=== PATIENT | female | born 1935 | race Caucasian/White ===

== ENCOUNTER 2017-10-25 12:22 | Emergency (ER) | payer MEDICARE, SELFPAY ==
[2017-10-25 12:23] VITALS: BP 166/58; PULSE 72; RESP 16; TEMP 36; O2SAT 98; BMI 28.5
--- NOTE | 2017-10-25 12:43 | CT_ITS ---
STUDY: CTA OF THE BRAIN REASON FOR EXAM: Female, 82 years old. One week history of dizziness. RADIATION DOSAGE (If Supplied By Facility): CTDIvol = ( 28.32 ) mGy, DLP = ( 1529.80 ) mGycm TECHNIQUE: CT angiography was performed with a multi-detector CT scanner. Data acquisition was obtained from the skull base through the vertex following intravenous administration of 100 ml of Isovue-370. MIP images were reconstructed from the axial data set. Post-processing of the angiographic images was performed, with multiplanar reformation and 3D reconstruction. Individualized dose optimization techniques were used for this CT. COMPARISON: None. FINDINGS: Normal bilateral petrous carotid arteries. There is calcified plaque formation of the right cavernous carotid artery, without a cross-sectional luminal stenosis. There is calcified plaque formation of the left cavernous carotid artery, without a cross-sectional luminal stenosis. Normal right A1 segments of the anterior cerebral artery. Normal left A1 segments of the anterior cerebral artery. Normal intact anterior communicating artery (ACOM). Normal bilateral A2 segments of the anterior cerebral arteries. Normal right M1 and M2 segments of the middle cerebral arteries, with a normal M1 bifurcation. Normal left M1 and M2 segments of the middle cerebral arteries, with a normal M1 bifurcation. Normal right posterior communicating artery (PCOM). Normal left posterior communicating artery (PCOM). Normal bilateral vertebral arteries. Normal basilar artery with a normal basilar bifurcation. The visualized bilateral superior cerebellar (SCA) arteries are normal. Normal bilateral P1, P2 and visualized P3 segments of the posterior cerebral arteries. There is no demonstrated aneurysm of the [place]. There is no demonstrated abnormality of the visualized brain. IMPRESSION: Normal [place] without a demonstrated aneurysm or hemodynamically significant stenosis. Electronically Signed: Magno Contreras MD at 14:15 EDT Tel [phone], Service support , STUDY: CTA NECK WITH CONTRAST REASON FOR EXAM: Female, 82 years old. One week history of dizziness. RADIATION DOSAGE (If Supplied By Facility): CTDIvol = ( 28.32 ) mGy, DLP = ( 1529.80 ) mGycm TECHNIQUE: CT angiography with multi-detector data acquisition was performed from the aortic arch to the skull base following intravenous administration of 100CC ml of Isovue 370 contrast. MIP images were reconstructed from the axial data set. Post-processing of the angiographic images was performed, with multiplanar reformation and 3D reconstruction. Individualized dose optimization techniques were used for this CT. COMPARISON: None. FINDINGS: Inhomogeneous appearance of the thyroid suggestive of a goiter as changes. AORTIC ARCH: There is atherosclerotic calcific plaque formation of the aortic arch and great vessels arising from the aortic arch, without a hemodynamically significant stenosis. There is a normal origin of the brachiocephalic, left common carotid, and left subclavian arteries. RIGHT CAROTID ARTERIES: Normal right common carotid artery (CCA). Normal right common carotid bulb. There is mild atherosclerotic plaque formation of the origin of the right internal carotid artery with less than 50% cross sectional diameter stenosis. Normal visualized cervical portion of the right internal carotid artery. Normal origin of the right external carotid artery (ECA). LEFT CAROTID ARTERIES: Normal left common carotid artery (CCA). Normal left common carotid bulb. Normal origin of the left internal carotid (ICA) artery without a hemodynamically significant stenosis. Normal visualized cervical portion of the left internal carotid artery. Normal origin of the left external carotid artery (ECA). VERTEBRAL ARTERIES: Normal bilateral vertebral arteries. CT/CTA Head W/WO Contrast IMPRESSION: Mild degree of atherosclerotic plaques at the origin of the right internal carotid artery. Electronically Signed: Magno Contreras MD at 14:17 EDT Tel [phone], Service support ,
--- NOTE | 2017-10-25 12:43 | CT_ITS ---
STUDY: CTA OF THE BRAIN REASON FOR EXAM: Female, 82 years old. One week history of dizziness. RADIATION DOSAGE (If Supplied By Facility): CTDIvol = ( 28.32 ) mGy, DLP = ( 1529.80 ) mGycm TECHNIQUE: CT angiography was performed with a multi-detector CT scanner. Data acquisition was obtained from the skull base through the vertex following intravenous administration of 100 ml of Isovue-370. MIP images were reconstructed from the axial data set. Post-processing of the angiographic images was performed, with multiplanar reformation and 3D reconstruction. Individualized dose optimization techniques were used for this CT. COMPARISON: None. FINDINGS: Normal bilateral petrous carotid arteries. There is calcified plaque formation of the right cavernous carotid artery, without a cross-sectional luminal stenosis. There is calcified plaque formation of the left cavernous carotid artery, without a cross-sectional luminal stenosis. Normal right A1 segments of the anterior cerebral artery. Normal left A1 segments of the anterior cerebral artery. Normal intact anterior communicating artery (ACOM). Normal bilateral A2 segments of the anterior cerebral arteries. Normal right M1 and M2 segments of the middle cerebral arteries, with a normal M1 bifurcation. Normal left M1 and M2 segments of the middle cerebral arteries, with a normal M1 bifurcation. Normal right posterior communicating artery (PCOM). Normal left posterior communicating artery (PCOM). Normal bilateral vertebral arteries. Normal basilar artery with a normal basilar bifurcation. The visualized bilateral superior cerebellar (SCA) arteries are normal. Normal bilateral P1, P2 and visualized P3 segments of the posterior cerebral arteries. There is no demonstrated aneurysm of the [place]. There is no demonstrated abnormality of the visualized brain. IMPRESSION: Normal [place] without a demonstrated aneurysm or hemodynamically significant stenosis. Electronically Signed: Magno Contreras MD at 14:15 EDT Tel [phone], Service support , STUDY: CTA NECK WITH CONTRAST REASON FOR EXAM: Female, 82 years old. One week history of dizziness. RADIATION DOSAGE (If Supplied By Facility): CTDIvol = ( 28.32 ) mGy, DLP = ( 1529.80 ) mGycm TECHNIQUE: CT angiography with multi-detector data acquisition was performed from the aortic arch to the skull base following intravenous administration of 100CC ml of Isovue 370 contrast. MIP images were reconstructed from the axial data set. Post-processing of the angiographic images was performed, with multiplanar reformation and 3D reconstruction. Individualized dose optimization techniques were used for this CT. COMPARISON: None. FINDINGS: Inhomogeneous appearance of the thyroid suggestive of a goiter as changes. AORTIC ARCH: There is atherosclerotic calcific plaque formation of the aortic arch and great vessels arising from the aortic arch, without a hemodynamically significant stenosis. There is a normal origin of the brachiocephalic, left common carotid, and left subclavian arteries. RIGHT CAROTID ARTERIES: Normal right common carotid artery (CCA). Normal right common carotid bulb. There is mild atherosclerotic plaque formation of the origin of the right internal carotid artery with less than 50% cross sectional diameter stenosis. Normal visualized cervical portion of the right internal carotid artery. Normal origin of the right external carotid artery (ECA). LEFT CAROTID ARTERIES: Normal left common carotid artery (CCA). Normal left common carotid bulb. Normal origin of the left internal carotid (ICA) artery without a hemodynamically significant stenosis. Normal visualized cervical portion of the left internal carotid artery. Normal origin of the left external carotid artery (ECA). VERTEBRAL ARTERIES: Normal bilateral vertebral arteries. CT/CTA Neck W/WO Contrast IMPRESSION: Mild degree of atherosclerotic plaques at the origin of the right internal carotid artery. Electronically Signed: Magno Contreras MD at 14:17 EDT Tel [phone], Service support ,
[2017-10-25 13:13] LABS: Absolute Lymphocyte Count 2.52 X10^3/ul (0.83-4.51); Absolute Neutrophil Count 5.7 X10^3/uL (2.0-7.7); Basophil# 0.02 X10^3/uL; Basophil% 0.2 % (0-1); Eosinophil# 0.25 X10^3/uL; Eosinophils% 2.8 % (0-5); Hematocrit 40.5 % (37-47); Hemoglobin 13.2 g/dl (12.0-15.0); Lymphocyte # 2.52 X10^3/ul (4.0); Lymphocyte % 27.9 % (19-41); Mean Corp Hgb Conc 32.6 g/gl (32-36); Mean Corpuscular Hgb 29.1 pg (27.0-32.0); Mean Corpuscular Volume 89.4 fL (81-99); Mean Platelet Vol. 9.8 fl (6.2-12.0); Monocyte# 0.56 X10^3/uL; Monocyte% 6.2 % (0-10); Neutrophil # 5.66 X10^3/uL (2.7-7.7); Neutrophil % 62.7 % (47-70); POSITIVE COUNT NO; POSITIVE DIFFERENTIAL NO; POSITIVE MORPHOLOGY NO; Platelet Count 298 K/mm3 (150-450); RBC Distribution Width SD 45.6 fl (35.1-43.9); Red Blood Count 4.53 M/mm3 (4.2-5.4)
[2017-10-25 13:24] LABS: Anion Gap 6 (5-15); BUN 14 mg/dL (7-18); BUN/Creat Ratio 15.4 RATIO (10-20); Chloride 105 mmol/L (98-107); Creatinine, Serum 0.91 mg/dL (0.55-1.02); EST Glomerular Filtration Rate 63 mL/min (>60); Est Glom Filt Rate - Afr Amer 77 mL/min (>60); Estimated Creatinine Clearance 36.59 ml/min; Glucose 92 mg/dL (74-106); Potassium 4.3 mmol/L (3.5-5.1); Sodium Level 138 mmol/L (136-145)
[2017-10-25] MEDS: 0.9% Normal Saline 1,000 ML 999 ML IV (13:55)
[2017-10-25 14:53] VITALS: PULSE 68; RESP 14; O2SAT 99
--- NOTE | 2017-10-25 15:11 | ED.VISSUMM ---
- ER Visit Summary Date of Service: 10/25/17 Chief Complaint: Dizziness History of Present Illness: The patient is a 82 F history of hypertension, cardiomyopathy glaucoma. She has had recent intermittent dizziness when she has stiffness in her neck. This is been intermittent for last month. She also recently has had a viral URI. She denies any strokelike symptoms. She denies any visual change. She denies any weakness or numbness. Physical Examination: Older female looks much younger than stated age. Vital signs are stable afebrile. Pulse ox 90%. H EENT exam unremarkable. Neck nontender. No bruits. Lungs clear to auscultation bilaterally. Heart regular rhythm no murmur. Abdomen is soft nontender. She is moving all 4 extremities. They are neurovascularly intact. 5 of 5 safe expert strength. Dorsi plantar flexion intact. Calves nontender without edema or cords. Back exam nontender. Neurologically she is awake and alert. NIH is 0. Normal motor strength and sensation. No focal deficits. Test Results: CBC normal. BMP normal. Patient underwent a CTA head and neck basically unremarkable except for minimal right internal carotid artery plaque. But no significant stenosis. I did go over the test with the patient and her . This was read by the radiologist. Emergency Department Course and Treatment: Sharath exam patient is doing well at 1514. She will be discharged home. Treatment Plan: Charge on follow-up her primary care physician Dr. Piper. They are considering an outpatient MRI of this patient's neck. Disposition: Discharge Impression: Acute transient dizziness of uncertain etiology This note was generated with [employer] dictation software. It may contain incorrect words, spelling, and punctuation that were not noted in review of the chart prior to signing ED Disposition - Plan for ED Patient: Chief Complaint: Dizziness Referrals: Birgit Estrada MD [Primary Care Provider] -
--- NOTE | 2017-10-25 15:15 | ED.DCSUM_ITS ---
- ER Visit Summary Date of Service: 10/25/17 Chief Complaint: Dizziness History of Present Illness: The patient is a 82 F history of hypertension, cardiomyopathy glaucoma. She has had recent intermittent dizziness when she has stiffness in her neck. This is been intermittent for last month. She also recently has had a viral URI. She denies any strokelike symptoms. She denies any visual change. She denies any weakness or numbness. Physical Examination: Older female looks much younger than stated age. Vital signs are stable afebrile. Pulse ox 90%. H EENT exam unremarkable. Neck nontender. No bruits. Lungs clear to auscultation bilaterally. Heart regular rhythm no murmur. Abdomen is soft nontender. She is moving all 4 extremities. They are neurovascularly intact. 5 of 5 sealer dry cell strength. Dorsi plantar flexion intact. Calves nontender without edema or cords. Back exam nontender. Neurologically she is awake and alert. NIH is 0. Normal motor strength and sensation. No focal deficits. Test Results: CBC normal. BMP normal. Patient underwent a CTA head and neck basically unremarkable except for minimal right internal carotid artery plaque. But no significant stenosis. I did go over the test with the patient and her . This was read by the radiologist. Emergency Department Course and Treatment: Sharath exam patient is doing well at 1514. She will be discharged home. Treatment Plan: Charge on follow-up her primary care physician Dr. Piper. They are considering an outpatient MRI of this patient's neck. Disposition: Discharge Impression: Acute transient dizziness of uncertain etiology This note was generated with [employer] dictation software. It may contain incorrect words, spelling, and punctuation that were not noted in review of the chart prior to signing ED Disposition - Plan for ED Patient: Chief Complaint: Dizziness Referrals: Birgit Estrada MD [Primary Care Provider] -
--- NOTE | 2017-10-25 15:15 | ED.DEP ---
ED Disposition - Plan for ED Patient: Disposition: Home or Assisted Living Chief Complaint: Dizziness Instructions: ED Dizziness [facility] Referrals: Birgit Estrada MD [Primary Care Provider] - As Needed Additional Instructions: Follow up with your primary care physician. The CAT scan better known as a CTA of your head neck today was normal. You had very minimal disease of your right internal carotid artery.
[2017-10-25 15:24] VITALS: BP 139/64
== END 2017-10-25 15:24 | disposition home or self-care (01) ==
PROVIDERS: Emergency Provider Emergency Medicine; Family Provider Internal Medicine; PCP Internal Medicine
DX: R42 Dizziness and giddiness (principal); I10 Essential (primary) hypertension; I42.9 Cardiomyopathy, unspecified; H40.9 Unspecified glaucoma; Z79.899 Other long term (current) drug therapy
CPT/HCPCS: 70496; 70498; 80048; 85025; 96360; 99283; J7030; Q9967; A4216

== ENCOUNTER 2018-01-19 15:48 | Emergency (ER) | payer MEDICARE, SELFPAY ==
[2018-01-19 15:49] VITALS: BP 145/58; PULSE 73; RESP 16; TEMP 36.6; O2SAT 97; BMI 27.9
--- NOTE | 2018-01-19 16:03 | EKG12_ITS ---
Test Reason : LEFT FLANK PAIN Blood Pressure : / mmHG Vent. Rate : 072 BPM Atrial Rate : 072 BPM P-R Int : 158 ms QRS Dur : 082 ms QT Int : 376 ms P-R-T Axes : 047 -16 064 degrees QTc Int : 411 ms Sinus rhythm with occasional Premature ventricular complexes Nonspecific ST and T wave abnormality Abnormal ECG Confirmed by JESUS SCHERER MD ([id number]), copy editor PADMA PERALES ([id number]) on 01/21/2018 12:47:54 PM Referred By: JOHN
[2018-01-19 16:05] VITALS: BP 150/58; PULSE 72; RESP 16; O2SAT 96
--- NOTE | 2018-01-19 16:05 | ED.VISSUMM ---
- ER Visit Summary Date of Service: 01/19/18 Chief Complaint: Left chest pain History of Present Illness: The patient is a 82 F states she has been feeling well last several days. She does have a history of hypertension, cardiomyopathy and glaucoma. States that she has recently been doing water aerobics for exercise. This morning she has been getting intermittent sharp stabbing left-sided chest pain. She describes it as a muscle spasm. There is times if she is completely pain-free. She describes it as a grabbing. She denies any shortness of breath, nausea or diaphoresis. It is not associated with exertion. It may or may not be associated with certain movements. She denies any history of any prior DVT or PE. No recent travel, surgery, hospitalization or immobilization. No recent travel. She denies any hemoptysis. States she has never had anything like this before except for possibly one time when she had pleurisy. Physical Examination: Older female no acute distress. Vital signs are stable afebrile. Pulse ox 97% on room air no signs of hypoxia. HEENT exam unremarkable. Neck nontender no JVD. Lungs clear to auscultation bilaterally. Heart regular rate and rhythm no murmur. Rate about 70. PVCs on the monitor. Chest wall is completely nontender. She points to her left lateral rib cage but there is no reproducible tenderness no ecchymosis or bruising no subcu air appearance or crepitance. No shingles. Abdomen is soft and nontender normal bowel sounds without peritoneal signs. No pulsatile mass. She is moving all 4 extremities. They are neurovascularly intact. Calves are nontender without edema or cords. Neurologically she is awake and alert with no focal motor deficits. Back exam nontender. Test Results: EKG shows a sinus rhythm rate is 72 with PVCs. There are no acute signs of an [place]. Chest x-ray shows chronic changes but no acute process borderline cardiomegaly read both by myself the radiologist. CBC normal. With a white count of 5 hemoglobin 13. BMP unremarkable with a gap of 10 and creatinine is 0.9 and troponin normal. Emergency Department Course and Treatment: Patient with very atypical chest pain that does not sound cardiac. She has never had a DVT or PE. She has no leg pain or swelling. And she has no risk factors for DVT or PE. This could be musculoskeletal. Treatment Plan: Repeat exam she is doing well at 1643. Again no reproducible pain. Disposition: Discharge Impression: Acute atypical left-sided chest pain secondary to intercostal muscle strain This note was generated with [employer] dictation software. It may contain incorrect words, spelling, and punctuation that were not noted in review of the chart prior to signing ED Disposition - Plan for ED Patient: Chief Complaint: Chest Other Referrals: Birgit Estrada MD [Primary Care Provider] -
[2018-01-19] MEDS: Ondansetron ODT 4 MG Tablet PO (16:14)
[2018-01-19] MEDS: Morphine 4 MG/ML Syringe IV (16:14)
--- NOTE | 2018-01-19 16:25 | RAD_ITS ---
STUDY: X-RAY CHEST REASON FOR EXAM: Female, 82 years old. Chest pain. TECHNIQUE: Frontal and lateral views of the chest. COMPARISON: None. FINDINGS: The lungs are hyperexpanded. There is no demonstrated pleural abnormality. There is borderline cardiomegaly. Normal mediastinum and feliz. Normal visualized pulmonary arteries. There is atherosclerotic calcification of the aortic arch with tortuosity. Normal visualized thoracic spine. Normal visualized ribs, clavicles, and shoulders. There is no demonstrated abnormality of the visualized soft tissue structures of the upper abdomen. RAD/Chest PA and Lateral IMPRESSION: Borderline cardiomegaly with mild hyperexpansion. No acute pathology. Electronically Signed: Dion Ramirez MD at 17:09 EDT , Service support ,
[2018-01-19 16:34] LABS: Basophil# 0.04 X10^3/uL; Basophil% 0.7 % (0-1); Eosinophil# 0.23 X10^3/uL; Hematocrit 42.4 % (37-47); Hemoglobin 13.8 g/dl (12.0-15.0); Lymphocyte % 38.1 % (19-41); Mean Corp Hgb Conc 32.5 g/gl (32-36); Mean Corpuscular Hgb 28.7 pg (27.0-32.0); Mean Corpuscular Volume 88.1 fL (81-99); Mean Platelet Vol. 9.8 fl (6.2-12.0); Monocyte# 0.31 X10^3/uL; Monocyte% 5.4 % (0-10); Neutrophil # 2.99 X10^3/uL (2.7-7.7); Neutrophil % 51.8 % (47-70); Platelet Count 280 K/mm3 (150-450); RBC Distribution Width CV 13.9 % (11.6-14.6); RBC Distribution Width SD 45.2 fl (35.1-43.9); Red Blood Count 4.81 M/mm3 (4.2-5.4); White Blood Count 5.8 K/mm3 (4.4-11.0)
[2018-01-19 16:36] LABS: POSITIVE COUNT NO; POSITIVE DIFFERENTIAL NO; POSITIVE MORPHOLOGY NO
[2018-01-19 16:44] VITALS: BP 130/58; PULSE 64; RESP 12; O2SAT 95
[2018-01-19 16:53] LABS: Anion Gap 10 (5-15); BUN 10 mg/dL (7-18); BUN/Creat Ratio 11.4 RATIO (10-20); Calcium,Total 9.2 mg/dL (8.5-10.1); Chloride 109 mmol/L (98-107); Creatinine, Serum 0.88 mg/dL (0.55-1.02); EST Glomerular Filtration Rate 66 mL/min (>60); Est Glom Filt Rate - Afr Amer 80 mL/min (>60); Estimated Creatinine Clearance 37.83 ml/min; Glucose 139 mg/dL (74-106); Potassium 3.7 mmol/L (3.5-5.1); Sodium Level 143 mmol/L (136-145)
--- NOTE | 2018-01-19 17:43 | ED.DEP ---
ED Disposition - Plan for ED Patient: Disposition: Home or Assisted Living Chief Complaint: Chest Other Instructions: ED Strain Chest Wall Prescriptions: Hydrocodone/Acetaminophen [[place] 5-325 Tablet] 1 ea PO Q4H PRN PRN #14 tab PRN Reason: Pain Referrals: Birgit Estrada MD [Primary Care Provider] - 1 Week if not improving Additional Instructions: Ice to chest wall. Motrin and Tylenol for pain. [place] as a pain medication for more severe pain or use the Ultram you have at home. Decreased physical exercise at this time until the pain is improving. Return if worse or follow-up your primary care physician if not getting better.
[2018-01-19 17:54] VITALS: BP 141/60; PULSE 56; RESP 17; O2SAT 98
== END 2018-01-19 17:55 | disposition home or self-care (01) ==
PROVIDERS: Emergency Provider Emergency Medicine; Family Provider Internal Medicine; PCP Internal Medicine
DX: S29.011A Strain of muscle and tendon of front wall of thorax, initial encounter (principal); R07.89 Other chest pain; I10 Essential (primary) hypertension; I42.9 Cardiomyopathy, unspecified; H40.9 Unspecified glaucoma; Z79.899 Other long term (current) drug therapy; X58.XXXA Exposure to other specified factors, initial encounter; Y93.9 Activity, unspecified; Y92.9 Unspecified place or not applicable; Y99.9 Unspecified external cause status
CPT/HCPCS: 71046; 80048; 84484; 85025; 93005; 96374; 99285; A4216

== ENCOUNTER → 2019-04-30 | Outpatient (CLI) | payer MEDICARE, SELFPAY ==
[2019-04-29 08:08] VITALS: BMI 27.1
[2019-04-30 09:54] LABS: AST(SGOT) 17 U/L (15-37); Alanine Aminotransfer ALT/SGPT 17 U/L (13-56); Alkaline Phosphatase 52 U/L (45-117); Bilirubin, Direct 0.16 mg/dL (0.00-0.30); Cholesterol 195 mg/dL (200); High Density Lipoprotein 57 mg/dL; Triglycerides 109 mg/dL; Very Low Density Lipoprotein 22 mg/dL (5-40)
== END | disposition home or self-care (01) ==
PROVIDERS: Family Provider Internal Medicine; PCP Internal Medicine; Referring Provider Internal Medicine Cardiovascular Disease; Visit Provider Internal Medicine Cardiovascular Disease
DX: E78.5 Hyperlipidemia, unspecified (principal)
CPT/HCPCS: 36415; 80061; 80076

== ENCOUNTER → 2019-05-18 | Outpatient (CLI) | payer MEDICARE, SELFPAY ==
[2019-04-29 08:08] VITALS: BMI 27.1
--- NOTE | 2019-05-18 13:39 | ECHOD_ITS ---
Reason For Study: DYSPNEA/SOB Procedure This was a 2D Doppler, Color Flow transthoracic echocardiogram. Exam performed in department. Left Ventricle Normal LV size. Left ventricular systolic function is normal. The estimated ejection fraction is 60 %. Stage 1 diastolic dysfunction. No regional wall motion abnormalities noted. Right Ventricle Normal RV size. Normal systolic function. Atria Normal left atrium. Normal right atrium. Mitral Valve Normal mitral valve. Tricuspid Valve Normal tricuspid valve. Aortic Valve The aortic valve is not well visualized. Mild focal aortic valve calcification. Mild (1+) aortic valve insufficiency. Pulmonic Valve The pulmonic valve is not well visualized. Great Vessels Normal aortic root. The pulmonary artery is normal size. Normal inferior vena cava. Pericardium/Pleural No pericardial effusion. MMode/2D Measurements & Calculations LVIDd: 5.0 cm IVSd: 0.87 cm Ao root diam: 3.1 cm LVIDs: 3.3 cm LVPWd: 0.95 cm RVDd: 2.7 cm FS: 33.3 % LAV(MOD-bp): 37.5 ml LVAd ap4: 27.8 cm2 SV(MOD-sp4): 57.1 ml LAV(MOD-bp) Indexed: 23.1 ml/m2 EDV(MOD-sp4): 86.6 ml LAV(MOD-sp2): 33.0 ml EDV(sp4-el): 89.5 ml LAV(MOD-sp4): 39.1 ml LVAs ap4: 14.1 cm2 ESV(MOD-sp4): 29.5 ml ESV(sp4-el): 29.0 ml EF(MOD-sp4): 66.0 % EF(sp4-el): 67.6 % SV(sp4-el): 60.5 ml LA A4 area: 15.7 cm2 LA dimension(2D): 3.6 cm RA A4 area: 12.9 cm2 Time Measurements MV dec time: 0.27 sec Doppler Measurements & Calculations MV E max herson: 93.9 cm/sec Lat Peak E' Herson: 11.4 cm/sec Med Peak E' Herson: 7.9 cm/sec MV A max herson: 127.9 cm/sec E/E' lat: 8.2 E/E' med: 11.9 MV E/A: 0.73 Ao V2 max: 140.7 cm/sec AI max herson: 385.6 cm/sec LV V1 max: 103.1 cm/sec Ao max P.0 mmHg AI max P.7 mmHg LV V1 max P.3 mmHg AI dec slope: 171.5 cm/sec2 AI P1/2t: 658.5 msec PA V2 max: 101.4 cm/sec Interpretation Summary Normal LV size. Left ventricular systolic function is normal. The estimated ejection fraction is 60 %. Stage 1 diastolic dysfunction. Mild (1+) aortic valve insufficiency. Mild focal aortic valve calcification. Ordering Physician: Carlos Eduardo Leigh Referring Physician: LINDSAY RALPH Performed By: Khadra Delgadillo RDCS
== END | disposition home or self-care (01) ==
LOC: CVS 13:38
PROVIDERS: Family Provider Internal Medicine; PCP Internal Medicine; Referring Provider Internal Medicine Cardiovascular Disease; Visit Provider Internal Medicine Cardiovascular Disease
DX: I42.8 Other cardiomyopathies (principal); R06.00 Dyspnea, unspecified; R06.02 Shortness of breath
CPT/HCPCS: 93306

== ENCOUNTER 2020-06-12 06:34 | Inpatient (IN) | payer MEDICARE, SELFPAY ==
[2020-06-12] VITALS (12 sets, daily range): BP systolic 141–182; BP diastolic 46–78; PULSE 61–79; RESP 16–18; TEMP 36.5–36.8; O2SAT 95–99; BMI 27.1; BMI 27.6; BMI 26.6; BMI 26.7
--- NOTE | 2020-06-12 06:53 | CT_ITS ---
STUDY: CT ABDOMEN AND PELVIS WITH CONTRAST REASON FOR EXAM: Female, 84 years old. RECTAL BLEEDING. HISTORY OF DIVERTICULITIS AND HYSTERECTOMY RADIATION DOSAGE (If Supplied By Facility): CTDIvol = ( 16.28 ) mGy, DLP = ( 795.47 ) mGycm TECHNIQUE: Transaxial images were obtained from the dome of the diaphragm to the symphysis pubis without oral contrast. IV 100mL Isovue-300 was administered. Sagittal and coronal images were reconstructed. Individualized dose optimization techniques were used for this CT. COMPARISON: None. FINDINGS: The visualized lung bases are unremarkable. The visualized portions of the heart are within normal limits. Normal liver. Normal gallbladder and extrahepatic biliary system. Normal spleen. Normal pancreas. Normal bilateral adrenal glands. Normal right kidney. Normal left kidney. Normal visualized stomach. Normal small intestine. There are multiple colonic diverticula consistent with diverticulosis. There is some focal wall thickening and stranding of surrounding fat of the proximal and mid descending colon suggestive of colitis. Possibilities include infectious colitis, diverticulitis, even though no diverticular seen in this area, or less likely colonic carcinoma. No loculated fluid collection to suggest abscess. No pneumoperitoneum to suggest perforation. The appendix is visualized and appears normal. There is diffuse atherosclerotic calcification of the abdominal aorta, without a demonstrated aneurysm. Normal inferior vena cava. Normal retroperitoneum. Normal urinary bladder. Normal abdominal wall. 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 CT/Abdomen/Pelvis W IV Cont ONLY IMPRESSION: Inflammation of the splenic flexure, and proximal and mid descending colon. Possibilities include infectious colitis or diverticulitis. No abscess or perforation. Electronically Signed: Abilio Melissa MD at 8:20 EST Tel , Service support ,
--- NOTE | 2020-06-12 06:57 | ED.DCSUM_ITS ---
- ER Visit Summary Date of Service: 06/12/20 Chief Complaint: Abdominal cramping and rectal bleeding History of Present Illness: The patient is a 84 F history of diverticulosis, hypertension and cardiomyopathy. Patient had a prior vaginal hysterectomy. States several weeks ago has had some loose stools. Some mild abdominal cramping. Saw her primary care physician's office and was started on and she believes Flagyl. Thought she was feeling better. Had more loose stools the last several days. Today had abdominal cramping and bright red blood in her depends diaper. She denies any fever or chills. She denies any dysuria. She has had mild nausea she threw up a week or so ago but has not since that time. She is on no blood thinners. Has had a prior colonoscopy. Denies any prior GI bleeds. Physical Examination: Well-appearing older female vital signs stable afebrile. She does not look septic or toxic. She is in no acute distress. HEENT exam unremarkable. Moist his membranes. Neck nontender no lymphadenopathy. Lungs clear to auscultation bilaterally. Heart regular rhythm no murmur. Abdomen soft and nontender normal bowel sounds no peritoneal signs. Currently she has no abdominal tenderness. There is no hernias or masses. No signs of obstruction. Patient is moving all 4 extremities. No edema. Back nontender. Rectal exam she does have an external hemorrhoid but is not thrombosed, nor is it tender nor is it actively bleeding. She has brown stool. I did examine her depends and it was bright red blood in her depends that she brought in with her. Neurologically she is awake and alert with no focal motor deficits. Test Results: [] Emergency Department Course and Treatment: Elderly female with abdominal cramping and rectal bleeding today. History of diverticulosis. Labs are being obtained along with a CAT scan. Currently she does not need anything for pain or nausea. Patient be turned over to the morning physician to reevaluate her, evaluate her labs and CAT scan results and make final disposition. Treatment Plan: [] Disposition: [] Impression: Acute abdominal pain Rectal bleeding History of diverticulosis This note was generated with [employer] dictation software. It may contain incorrect words, spelling, and punctuation that were not noted in review of the chart prior to signing <Hemant Powell - Last Filed: 06/12/20 06:57> - ER Visit Summary Date of Service: 06/12/20 Chief Complaint: [] History of Present Illness: The patient is a 84 F [] Physical Examination: [] Test Results: [] Emergency Department Course and Treatment: [] Treatment Plan: [] Disposition: [] Impression: [] This note was generated with [employer] dictation software. It may contain incorrect words, spelling, and punctuation that were not noted in review of the chart prior to signing dr toussaint dictating The patient is reevaluated after labs are obtained, her labs are generally unremarkable except her lactate is elevated to 2.4, the CT scan shows extensive diverticulitis left colon area please see that report no abscess no free fluid no free air, on reevaluation her vital signs remained stable she received IV fluid bolus, her abdomen is soft there is a very nonspecific discomfort no rebound guarding organomegaly and generally she states she feels better The patient indicates she is been having this on and off issue of crampy abdominal pain intermittent blood per rectum as she recalls now for possibly a month she recalls being placed on an antibiotic for this a few weeks ago by her physicians, reports some improvement but not complete total improvement, she also has a history of what she describes as irritable bowel years years. She recalls having colonoscopy 10 years ago that was unremarkable Discussed all of the above given the extensive nature of the diverticulitis on the CT given that she was on antibiotics recently we spoke with the hospitalist and the patient the plan will be to admit for the management IV antibiotics started repeat lactate pending she is received IV fluids as well she is resting comfortably please note she has not had any blood per rectum since she was in the emergency department and she is remained hemodynamically stable. Hospitalist asked that we contact surgery make them aware of her pending admission which was also done Disposition is admit stable Final impression is diverticulitis, lower GI bleed <Cb Toussaint - Last Filed: 06/12/20 12:35> ED Disposition <Hemant Powell - Last Filed: 06/12/20 06:57> <Cb Toussaint - Last Filed: 06/12/20 12:35> - Plan for ED Patient: Disposition: Acute Care [facility]
[2020-06-12 07:05] LABS: Absolute Lymphocyte Count 1.42 X10^3/uL (0.83-4.51); Absolute Neutrophil Count 8.2 X10^3/uL (2.0-7.7); Basophil# 0.04 X10^3/uL; Basophil% 0.4 % (0-1); Eosinophil# 0.04 X10^3/uL; Eosinophils% 0.4 % (0-5); Hematocrit 45.1 % (37-47); Hemoglobin 14.6 g/dL (12.0-15.0); Lymphocyte # 1.42 X10^3/ul (4.0); Mean Corp Hgb Conc 32.4 g/dL (32-36); Mean Corpuscular Volume 89.7 fL (81-99); Mean Platelet Vol. 10.6 fl (6.2-12.0); Monocyte# 0.43 X10^3/uL; Monocyte% 4.3 % (0-10); NRBC Flagged by Analyzer 0 % (0-5); Neutrophil # 8.15 X10^3/uL (2.7-7.7); Neutrophil % 80.6 % (47-70); Platelet Count 295 K/mm3 (150-450); RBC Distribution Width CV 13.4 % (11.6-14.6); Red Blood Count 5.03 M/mm3 (4.2-5.4); White Blood Count 10.1 K/mm3 (4.4-11.0)
[2020-06-12 07:21] LABS: ALB/GLOB Ratio 1.5 RATIO (0.9-2.4); AST(SGOT) 20 U/L (15-37); Alanine Aminotransfer ALT/SGPT 24 U/L (13-56); Albumin, Serum 4.3 g/dL (3.2-5.0); Alkaline Phosphatase 59 U/L (45-117); Anion Gap 8 (5-15); BUN 11 mg/dL (7-18); BUN/Creat Ratio 11.7 RATIO (10-20); Calcium,Total 9.5 mg/dL (8.5-10.1); Chloride 106 mmol/L (98-107); Creatinine, Serum 0.94 mg/dL (0.55-1.02); EST Glomerular Filtration Rate 60 mL/min (>60); Est Glom Filt Rate - Afr Amer 73 mL/min (>60); Estimated Creatinine Clearance 34.22 ml/min; Globulin 2.9 g/dL (2.2-4.2); Glucose 134 mg/dL (74-106); Lipase 97 U/L (73-393); Potassium 3.4 mmol/L (3.5-5.1); Protein, Total 7.2 g/dL (6.4-8.2); Sodium Level 139 mmol/L (136-145)
[2020-06-12] MEDS: 0.9% Normal Saline 1,000 ML 125 ML IV ×3 (07:24→22:52)
[2020-06-12 07:48] LABS: Lactic Acid 2.4 mmol/L (0.4-1.9)
[2020-06-12 08:31] LABS: Mucous, Urine 0 SEEN /hpf (<or=2+); Red Blood Cells-Urine 0 SEEN /hpf (0-5); Squamous Epithelial Cells - UA 0 SEEN /hpf (5-10); White Blood Cells 0 SEEN /hpf (0-5)
[2020-06-12 08:42] LABS: Color, Urine Straw (Yellow); Glucose, Dipstick Normal (Normal); Ketone-Dipstick Negative (Negative); Leukocyte Esterase-Dipstick Negative /ul (Negative); Nitrite-Dipstick Negative (Negative); Occult Blood-Urine Negative /ul (Negative); Protein-Dipstick Negative (Negative); Specific Gravity, Urine 1.015 (1.002-1.030); Urine Bilirubin Dipstick Negative (Negative); Urine Clarity Clear (Clear); Urine Urobilinogen Normal (Normal)
[2020-06-12 08:51] LABS: Bacteria RARE /hpf (None Seen)
[2020-06-12] MEDS: metroNIDAZOLE 500 MG/100 ML BAG 100 MG IV ×3 (09:39→21:49)
--- NOTE | 2020-06-12 09:55 | HP.PCM_ITS ---
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 Leigh came to the ER with rectal bleeding and abdominal pain. Patient had antibiotic for about 10 days for diverticulitis about 3 weeks ago and her appetite and abdominal pain improved. She had 1 instance of upper abdominal pain after that episode lasted for about 1 hour about a week ago, nauseated, small emesis and small bleeding what she thought about hemorrhoidal bleed. Last night after supper, she started having abdominal pain on right lower quadrant which then became diffuse. Denies nausea or vomiting. She started having large bloody stool, brownish color with chocolate consistency. She had colonoscopy about 10 years ago and no significant abnormal polyp or cancer found as per the patient. Past Medical History Past Medical History (Chronic Problems): Chronic Problems (Last Updated 05/18/19 @ 18:00 by Denae Mario) Non-ischemic cardiomyopathy (Chronic) Hemorrhoids (Chronic) Hypertension (Chronic) Premature ventricular contractions (Chronic) Hyperlipemia (Chronic) Medical History: Medical History (Last Updated 05/18/19 @ 18:00 by Denae Mario) Premature ventricular contractions (Chronic) I49.3 Hyperlipemia (Chronic) E78.5 Asthma J45.909 Diverticulosis K57.90 GERD (gastroesophageal reflux disease) K21.9 Gastritis K29.70 Glaucoma H40.9 Non-ischemic cardiomyopathy I42.8 Allergies erythromycin base [Erythromycin Base] Allergy (Verified 06/12/20 06:37) Nausea/Vom/Diarrhea Penicillins Allergy (Verified 06/12/20 06:37) Hives Sktpikh-Gca-Rwt Reductase Inhibitor Adverse Reaction (Unknown, Verified 06/12/20 06:37) Unknown RAJAN Inhibitors Adverse Reaction (Verified 06/12/20 06:37) cough epinephrine Adverse Reaction (Verified 06/12/20 06:37) rapid heart rate Sulfa (Sulfonamide Antibiotics) Adverse Reaction (Verified 06/12/20 06:37) Unknown Home Medications: Ambulatory Orders Medication Instructions Recorded Brimonidine 0.15% [Alphagan P 1 drp OPHTHALMIC (EYE) BID 10/22/13 0.15%] Travoprost 0.004% [Travatan 0.004% 1 drp LEFT EYE DAILY 10/22/13 Eye Drop] Dorzolamide HCl [Trusopt] 1 drp OP BID 10/25/17 Omeprazole 40 mg PO DAILY 10/25/17 Netarsudil Mesylate [Rhopressa] 1 drp EACH EYE QHS 01/19/18 albuterol sulfate 90 mcg/actuation 2 puff INHALATION Q6H PRN 04/25/19 aerosol inhaler calcium carbonate 600 mg calcium 600 mg PO BID 04/25/19 (1,500 mg) tablet cholecalciferol (vitamin D3) 10 400 unit PO DAILY 04/25/19 mcg (400 unit) capsule omega-3 fatty acids 1,000 mg 1,000 mg PO DAILY 04/25/19 capsule Losartan Potassium [Cozaar] 50 mg PO DAILY 06/12/20 Surgical History: Surgical History (Last Reviewed 04/29/19 @ 10:[address] Carlos Eduardo Leigh MD) History of cataract surgery Z98.49 History of hysterectomy Z90.710 History of tonsillectomy Z90.89 History of trabeculectomy Onset Date: 03/12/19 Z98.890 right eye Smoking Status: Former smoker Review of Systems Constitutional: Denies: Chills, Fever, Weight Change HEENT: Denies: Head Aches, Sinus Congestion, Sinus Drainage Cardiovascular: Denies: Chest Pain, Palpitations Respiratory: Denies: Cough, Shortness of breath at rest, Sputum production Gastrointestinal: Reports: Abdominal Pain, Hematochezia. Denies: Hematemesis, Melena, Vomiting Genitourinary: Denies: Dysuria, Frequency Musculoskeletal: Denies: Back Pain, Foot Pain, Hand Pain, Joint Pain, Joint Tenderness Skin: Denies: Rash, Wounds Neurological: Denies: Balance problems, Focal weakness, Numbness, Tingling Psychiatric: Denies: Anxiety, Depression, Homicidal Ideations, Suicidal Ideations Hematologic/ Lymphatic: Denies: Easy Bruising, Easy Bleeding VTE Information - Inpt Only VTE Present on Admission: No VTE Mechan Device Prophylaxis: SCD's VTE Pharm Prophylaxis ordered?: No Reason prophylaxis not ordered:: Medical Contraindication - Acute GI bleed Patient Problems: Active and Suspected Problems (Last Updated 05/18/19 @ 18:00 by Denae Mario) Acute on recurrent colon diverticulitis (Acute) Objective: Physical exam General: Alert, Oriented x3, Cooperative HEENT: Atraumatic, PERRLA, EOMI, Normocephalic Oral: No Gingival or Mucosal Lesions/ Ulcerations Neck: Supple, No JVD, Negative Carotid Bruits Lungs: Air entry diminished in bilateral lung bases. No crepitation/rhonchi Cardiovascular: Regular rate, Regular Rhythm, Normal S1, Normal S2, No murmurs Abdomen: Soft, nontender, nondistended, bowel sounds present. : No renal angle tenderness. No suprapubic tenderness. Extremities: No edema, Capillary Refill Less than 3 Seconds Skin: No rashes, No breakdown Musculoskeletal: No Tenderness to Palpation of Joints or Extremities Neurological: Cranial nerves II-XII grossly intact, Deep Tendon Reflexes 2+/4 and Symmetrical, Neuro grossly intact Psych/Mental Status: Normal Affect, Appropriate. - Physical Exam Vitals/I&O's: Vital Signs Temp Pulse Resp BP Pulse Ox 97.7 F L 78 16 167/78 H 98 06/12/20 06:35 06/12/20 08:20 06/12/20 08:20 06/12/20 08:20 06/12/20 08:20 Oxygen Delivery Method Room Air Weight: 145 lb 15.136 oz Body Mass Index (BMI) 27.6 Intake and Output for Last 24 Hours 06/10/20 06/11/20 06/12/20 23:59 23:59 23:59 Intake Total 500 / 500 Balance 500 / 500 Laboratory Results 06/12/20 06:40: WBC 10.1, RBC 5.03, Hgb 14.6, Hct 45.1, MCV 89.7, MCH 29.0, MCHC 32.4, RDW Std Deviation 44.0 H, RDW Coeff of Tasha 13.4, Plt Count 295, MPV 10.6, Immature Gran % (Auto) 0.300, Neut % (Auto) 80.6 H, Lymph % (Auto) 14.0 L, Conway % (Auto) 4.3, Eos % (Auto) 0.4, Baso % (Auto) 0.4, Absolute Neuts (auto) 8.2 H, Absolute Lymphs (auto) 1.42, Nucleated RBC % 0 06/12/20 06:40: Sodium 139, Potassium 3.4 L, Chloride 106, Carbon Dioxide 25.0, Anion Gap 8, BUN 11, Creatinine 0.94, Estim Creat Clear Calc 34.22, Est GFR (MDRD) Af Amer 73, Est GFR (MDRD) Non-Af 60, BUN/Creatinine Ratio 11.7, Glucose 134 H, Calcium 9.5, Total Bilirubin 0.70, AST 20, ALT 24, Alkaline Phosphatase 59, Total Protein 7.2, Albumin 4.3, Globulin 2.9, Albumin/Globulin Ratio 1.5, Lipase 97 06/12/20 07:05: Lactic Acid 2.4 H* 06/12/20 08:20: Urine Color Straw, Urine Clarity Clear, Urine pH 8.0, Ur Specific [place] 1.015, Urine Protein Negative, Urine Glucose (UA) Normal, Urine Ketones Negative, Urine Occult Blood Negative, Urine Nitrite Negative, Urine Bilirubin Negative, Urine Urobilinogen Normal, Ur Leukocyte Esterase Negative, Urine RBC 0 SEEN, Urine WBC 0 SEEN, Ur Squamous Epith Cells 0 SEEN, Urine Bacteria RARE, Urine Mucus 0 SEEN 06/12/20 09:48: Lactic Acid Pending Current Medications Sodium Chloride () 1,000 mls @ 125 mls/hr IV .Q8H TYLER Last Admin: 06/12/20 07:24 Dose: 125 mls/hr Documented by: Ciprofloxacin (Cipro) 400 mg in 200 mls @ 200 mls/hr IV X1 ONE Stop: 06/12/20 09:56 Assessment/Plan All Active Problems (Last Updated 05/18/19 @ 18:00 by Denae Mario) Acute on recurrent colon diverticulitis (Acute) The patient is a 84 year old F is admitted with bleeding per rectal and abdominal pain CT finding consistent with large bowel diverticulitis. 1. Acute on recurrent recent colon Diverticulitis with history of diverticulosis: Patient had CT abdomen done with IV contrast in ED which showed diverticulitis of splenic flexure, proximal and mid descending colon with focal wall thickening and stranding of surrounding fat. No abscess or perforation found. Multiple colonic diverticula. Started on IV Cipro and Flagyl in ED and will continue it. IV fluid normal saline at 125 mill per hour. Patient does not have leukocytosis but lactic acid elevated 2.4 and 3.1. 2. 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 Arguello and then follows Dr. Leigh. Heart rate and blood pressure are good. Patient is not on baby aspirin which has been discontinued in the past. Continue losartan with holding parameters. Centimeter spirometry. Echo 05/27/2019 as reported below has history of chronic HFpEF. Interpretation Summary Normal LV size. Left ventricular systolic function is normal. The estimated ejection fraction is 60 %. Stage 1 diastolic dysfunction. Mild (1+) aortic valve insufficiency. Mild focal aortic valve calcification. 3. Patient history of irritable bowel syndrome: 4. Other comorbidities include hypertension, dyslipidemia and glaucoma: Patient on eyedrops. Discussed with the pharmacist and if duplicate will discontinue the eyedrops. VTE prophylaxis, moderate risk: Pharmacologic prophylaxis contraindicated. Bilateral SCDs. Laboratory Results 06/12/20 06:40: WBC 10.1, RBC 5.03, Hgb 14.6, Hct 45.1, MCV 89.7, MCH 29.0, MCHC 32.4, RDW Std Deviation 44.0 H, RDW Coeff of Tasha 13.4, Plt Count 295, MPV 10.6, Immature Gran % (Auto) 0.300, Neut % (Auto) 80.6 H, Lymph % (Auto) 14.0 L, Conway % (Auto) 4.3, Eos % (Auto) 0.4, Baso % (Auto) 0.4, Absolute Neuts (auto) 8.2 H, Absolute Lymphs (auto) 1.42, Nucleated RBC % 0 06/12/20 06:40: Sodium 139, Potassium 3.4 L, Chloride 106, Carbon Dioxide 25.0, Anion Gap 8, BUN 11, Creatinine 0.94, Estim Creat Clear Calc 34.22, Est GFR (MDRD) Af Amer 73, Est GFR (MDRD) Non-Af 60, BUN/Creatinine Ratio 11.7, Glucose 134 H, Calcium 9.5, Total Bilirubin 0.70, AST 20, ALT 24, Alkaline Phosphatase 59, Total Protein 7.2, Albumin 4.3, Globulin 2.9, Albumin/Globulin Ratio 1.5, Lipase 97 06/12/20 06:40: Magnesium 2.1 06/12/20 07:05: Lactic Acid 2.4 H* 06/12/20 08:20: Urine Color Straw, Urine Clarity Clear, Urine pH 8.0, Ur Specific [place] 1.015, Urine Protein Negative, Urine Glucose (UA) Normal, Urine Ketones Negative, Urine Occult Blood Negative, Urine Nitrite Negative, Urine Bilirubin Negative, Urine Urobilinogen Normal, Ur Leukocyte Esterase Negative, Urine RBC 0 SEEN, Urine WBC 0 SEEN, Ur Squamous Epith Cells 0 SEEN, Urine Bacteria RARE, Urine Mucus 0 SEEN 06/12/20 09:48: Lactic Acid 3.1 H* [] Clinical Impression(s) from Imaging Studies Abdomen/Pelvis CT 06/12/20 06:53 IMPRESSION: Inflammation of the splenic flexure, and proximal and mid descending colon. Possibilities include infectious colitis or diverticulitis. No abscess or perforation. Inpatient E&M: 97617 Init Hosp L3
[2020-06-12 10:25] LABS: Lactic Acid 3.1 mmol/L (0.4-1.9)
[2020-06-12] MEDS: Ciprofloxacin 400 MG/200 ML BAG 200 MG IV ×2 (10:29→22:51)
[2020-06-12 11:13] LABS: Reflex Lactate? Y
[2020-06-12 11:42] LABS: Magnesium 2.1 mg/dL (1.6-2.6)
--- NOTE | 2020-06-12 11:43 | EKG12_ITS ---
Test Reason : Blood Pressure : / mmHG Vent. Rate : 061 BPM Atrial Rate : 061 BPM P-R Int : 176 ms QRS Dur : 088 ms QT Int : 528 ms P-R-T Axes : 065 -08 144 degrees QTc Int : 531 ms Normal sinus rhythm T wave abnormality, consider anterolateral ischemia Prolonged QT Abnormal ECG Confirmed by HIRAL NGO, PATTI ([id number]), photograph editor CHICO PICHARDO ([id number]) on 06/15/2020 1:20:45 PM Referred By: DUSTIN Confirmed By:PATTI BLACKMAN MD
[2020-06-12] MEDS: Famotidine 20 MG Tablet PO (12:33)
[2020-06-12 13:50] LABS: Reflex Lactate? Y
[2020-06-12 14:11] LABS: Hematocrit 39.1 % (37-47); Hemoglobin 13.1 g/dL (12.0-15.0)
[2020-06-12 14:39] LABS: Lactic Acid 1.4 mmol/L (0.4-1.9)
--- NOTE | 2020-06-12 17:19 | PCM.CONS.B ---
- Consult Date of Consult: 06/12/20 - Reason for Consult Chief Complaint: abdominal pain rectal bleeding History of Present Illness: 84 y/o WF presents with abdominal pain and rectal bleeding. She had been treated as an outpatient for diverticulitis about 2 weeks ago and had some improvement, placed on po flagyl. However, she noted increased pain in the left side of the abdomen about a day ago. She also noted bright red blood per rectum. She had a colonoscopy about 10 years ago. She presents to ED [facility] with above symptoms. WBC is normal with normal H/H. CT scan - There are multiple colonic diverticula consistent with diverticulosis. There is some focal wall thickening and stranding of surrounding fat of the proximal and mid descending colon suggestive of colitis. Possibilities include infectious colitis, diverticulitis, even though no diverticular seen in this area, or less likely colonic carcinoma. No loculated fluid collection to suggest abscess. No pneumoperitoneum to suggest perforation. The appendix is visualized and appears normal. Past Medical History: Acute gastritis without mention of hemorrhage ? Anxiety state, unspecified ? Cardiomyopathy (HCC) Dr. Leigh ([facility]) Diarrhea - irritable bowel syndrome ? Diverticulosis of colon (without mention of hemorrhage) ? Dysphagia ? Esophageal reflux ? 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 Pain in joint, site unspecified ? POAG (primary open-angle glaucoma) ? 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 Unspecified inflammatory polyarthropathy Diagnosed by Dr. Ness Unspecified vitamin D deficiency ? diagnosed by Dr. Ness Past Surgical History: CATARACT SURGERY, COMPLEX Bilateral 12/15, 12/16 COLONOSCOP W/ OR W/O [facility] SPEC ?06/14/10 right and left sided diverticula EGD W/O [facility] SPECIMEN W/BX ? 03/07/06 Tonsillectomy TRABECULECTOMY WITH SCARRING Right 03/19/2019 VAG HYST,RMV VAGINA ? 1984 Medications: pyridoxine, vitamin B6, (VITAMIN B-6) 100 mg tablet Take 100 mg by mouth once daily. ? ? losartan (COZAAR) 50 mg tablet Take 1 tablet by mouth once daily. (Dr. Leigh managing) ? ? fluticasone (FLONASE ALLERGY RELIEF) 50 mcg/actuation nasal spray Use 1 Sherrill in each nostril once daily. ? ? VYZULTA 0.024 % drop ? ? ? ALPHAGAN P 0.1 % drop Use 1 Drop in the left eye three times daily. ? ? RHOPRESSA 0.02 % drop Use 1 Drop in the left eye daily at bedtime. ? ? albuterol HFA (PROVENTIL HFA, VENTOLIN HFA) 90 mcg/actuation inhaler Inhale 2 Puffs as instructed every 4 hours as needed. 1 Inhaler Omeprazole 40 mg capsule Take 1 capsule by mouth once daily. (Patient taking differently: Take 40 mg by mouth as needed. benzonatate (TESSALON PERLES) 100 mg capsule Take 1 capsule by mouth three times daily as needed. FOR COUGHING. 30 capsule dorzolamide (TRUSOPT) 2 % ophthalmic solution Use 1 Drop in both eyes twice daily. ? ? trospium (SANCTURA) 20 mg tablet Take 1 tablet by mouth as needed. 60 tablet 2 coenzyme Q10 (COQ-10) 100 mg cap Take 1 capsule by mouth once daily. ? 0 diphenhydrAMINE (BENADRYL) 25 mg ORAL capsule Take 1 capsule by mouth daily at bedtime. ? 0 cholecalciferol(VITAMIN D-3 400 UNIT TAB) 1000 mg twice daily ? 0 ascorbic acid(VITAMIN C 500 MG TAB) Take one(1) tablet daily. ? 0 CALCIUM 500 WITH VITAMIN D 500 MG-125 UNIT TAB takes 2 twice a day ? 0 THERAPEUTIC MULTIVITAMIN TAB Take one(1) tablet daily. ? 0 metroNIDAZOLE (FLAGYL) 250 mg tablet Take 1 tablet by mouth three times daily. 15 tablet 3 TURMERIC ORAL Take by mouth. ? ? DEFINITY Flaxseed Oil 1,000 mg cap Take 1 capsule by mouth once daily. ? ? tetrahydrozoline HCl/zinc sulf (EYE DROPS A/C OPHTHALMIC) Allergies: Altace [Ramipril] Cough Epinephrine Intolerance ? Rapid heart rate Erythromycin GI Upset Niacin Intolerance Penicillins Hives Blkgtcc-Hnl-Ydt Red* Intolerance Sulfa (Sulfonamide * Intolerance Trees Social history: TOB use denies Review of Systems: Constitutional: Negative for chills, diaphoresis, fever, malaise/fatigue and weight loss. HENT: Negative for congestion, ear discharge, ear pain, hearing loss, nosebleeds, sinus pain, sore throat and tinnitus. Eyes: Negative for blurred vision, double vision, photophobia, pain, discharge and redness. Respiratory: Negative for cough, hemoptysis, sputum production, shortness of breath, wheezing and stridor. Cardiovascular: recently evaluation by cardiology - EF 40%, known viral cardiomyopathy, patient deferred offer for nuclear stress test and/or cards cath. Gastrointestinal: Negative for abdominal pain, blood in stool, constipation, diarrhea, heartburn, melena, nausea and vomiting. Genitourinary: Negative for dysuria, flank pain, frequency, hematuria and urgency. Musculoskeletal: Negative for back pain, falls, joint pain, myalgias and neck pain. Skin: Negative for itching and rash. Neurological: Negative for dizziness, tingling, tremors, sensory change, speech change, focal weakness, seizures, loss of consciousness, weakness and headaches. Endo/Heme/Allergies: Negative for environmental allergies and polydipsia. Does not bruise/bleed easily. Psychiatric/Behavioral: Negative for depression, hallucinations, memory loss, substance abuse and suicidal ideas. The patient is not nervous/anxious and does not have insomnia. ? Physical examination: Vital signs Temp 98.7F BP 121/87 RR 16 HR 82 Head: Normocephalic and atraumatic. Mouth/Throat: Oropharynx is clear and moist. Eyes: Pupils are equal,. Conjunctivae and EOM are normal. Neck: Normal range of motion. Neck supple. No JVD present. No tracheal deviation present. Cardiovascular: Normal rate, regular rhythm, S1 normal, S2 normal, normal heart sounds. Exam reveals no gallop, and no friction rub. No murmur heard. Pulmonary/Chest: Effort normal and breath sounds normal. No stridor. No respiratory distress. She has no wheezes. She has no rales. She exhibits no tenderness. Abdominal: soft and obese - tender in left side of abdomen but no peritoneal signs Musculoskeletal: Normal range of motion. No tenderness, deformity or edema. Neurological: She is alert and oriented to person, place, and time. Skin: Skin is warm and dry. No rash noted. She is not diaphoretic. No erythema. No pallor. Psychiatric: Mood, memory, affect and judgment normal. Impression: acute on chronic diverticulitis/colitis bright red blood - rectal bleeding Discussion/Plan: I have discussed the above with the patient. She continues to have left lower quadrant abdominal pain but described more as a crampy fecal urgency type pain - low level. She continues to have bright red blood per rectum, probably from hemorrhoidal bleeding and/or diverticular bleeding. She may also have possibility of ischemic colitis. Her last colonoscopy was 10 years ago. I recommend continued IV antibiotics and IV hydration as you are doing. Patient can be on clear liquid diet and I would recommend that she continue on this until pain is abated. I doubt that patient will require any surgical intervention during this hospitalization. Will follow patient with you. I have answered all her questions and she has no further questions. Thank you for this consultation with this nice patient.
[2020-06-12] MEDS: Acetaminophen 325 MG Tablet 650 MG PO (18:18)
[2020-06-13] VITALS (7 sets, daily range): BP systolic 112–137; BP diastolic 47–49; PULSE 62–88; RESP 18; TEMP 36.9–37.2; O2SAT 94–98
[2020-06-13] MEDS: metroNIDAZOLE 500 MG/100 ML BAG 100 MG IV ×2 (05:59→14:31)
[2020-06-13] MEDS: Acetaminophen 325 MG Tablet 650 MG PO (06:00)
[2020-06-13 06:43] LABS: Absolute Lymphocyte Count 1.37 X10^3/uL (0.83-4.51); Absolute Neutrophil Count 6.4 X10^3/uL (2.0-7.7); Basophil# 0.04 X10^3/uL; Basophil% 0.5 % (0-1); Eosinophil# 0.09 X10^3/uL; Eosinophils% 1.1 % (0-5); Hematocrit 35.9 % (37-47); Hemoglobin 11.8 g/dL (12.0-15.0); Lymphocyte # 1.37 X10^3/ul (4.0); Mean Corp Hgb Conc 32.9 g/dL (32-36); Mean Corpuscular Hgb 29.5 pg (27.0-32.0); Mean Corpuscular Volume 89.8 fL (81-99); Mean Platelet Vol. 10.2 fl (6.2-12.0); NRBC Flagged by Analyzer 0 % (0-5); Neutrophil # 6.41 X10^3/uL (2.7-7.7); Platelet Count 204 K/mm3 (150-450); RBC Distribution Width CV 13.9 % (11.6-14.6); RBC Distribution Width SD 45.4 fl (35.1-43.9); White Blood Count 8.5 K/mm3 (4.4-11.0)
[2020-06-13 07:17] LABS: Anion Gap 5 (5-15); BUN 4 mg/dL (7-18); BUN/Creat Ratio 6.6 RATIO (10-20); Calcium,Total 8.1 mg/dL (8.5-10.1); Chloride 112 mmol/L (98-107); Creatinine, Serum 0.61 mg/dL (0.55-1.02); EST Glomerular Filtration Rate 100 mL/min (>60); Est Glom Filt Rate - Afr Amer 121 mL/min (>60); Estimated Creatinine Clearance 32.17 ml/min; Glucose 110 mg/dL (74-106); Potassium 3.4 mmol/L (3.5-5.1); Sodium Level 140 mmol/L (136-145)
--- NOTE | 2020-06-13 07:57 | PCM.PN.SRG ---
Patient Problems: Active and Suspected Problems (Last Updated 05/18/19 @ 18:00 by Denae Mario) Acute on recurrent colon diverticulitis (Acute) Subjective: patient feels improved, no rectal bleeding noted - Physical Exam Vitals/I&O's: Vital Signs Temp Pulse Resp BP Pulse Ox 98.9 F 62 18 123/47 H 98 06/13/20 03:30 06/13/20 03:30 06/13/20 03:30 06/13/20 03:30 06/13/20 03:30 Oxygen Delivery Method Room Air Weight: 66.3 kg Body Mass Index (BMI) 26.6 Intake and Output for Last 24 Hours 06/11/20 06/12/20 06/13/20 23:59 23:59 23:59 Intake Total 2627.08 / 2947.08 1779 Balance 2627.08 / 2947.08 1779 General: Alert, Oriented x3 HEENT: Atraumatic Oral: Moist Mucosa Neck: Supple Lungs: Normal air movement Abdomen: Soft, - - states tender in left side of abdomen, but no wincing with deep palpation noted no peritoneal signs noted Microbiology Past 72 Hours 06/12/20 14:16 Stool Stool Lactoferrin - Final 06/12/20 14:16 Stool C. difficile DNA Amplification - Final Laboratory Results 06/12/20 06:40: Magnesium 2.1 06/12/20 08:20: Urine Color Straw, Urine Clarity Clear, Urine pH 8.0, Ur Specific [place] 1.015, Urine Protein Negative, Urine Glucose (UA) Normal, Urine Ketones Negative, Urine Occult Blood Negative, Urine Nitrite Negative, Urine Bilirubin Negative, Urine Urobilinogen Normal, Ur Leukocyte Esterase Negative, Urine RBC 0 SEEN, Urine WBC 0 SEEN, Ur Squamous Epith Cells 0 SEEN, Urine Bacteria RARE, Urine Mucus 0 SEEN 06/12/20 09:48: Lactic Acid 3.1 H* 06/12/20 13:48: Hgb 13.1, Hct 39.1 06/12/20 13:48: Lactic Acid 1.4 06/12/20 21:00: Hgb 12.0, Hct 37.0 06/13/20 06:30: WBC 8.5, RBC 4.00 L, Hgb 11.8 L, Hct 35.9 L, MCV 89.8, MCH 29.5, MCHC 32.9, RDW Std Deviation 45.4 H, RDW Coeff of Tasha 13.9, Plt Count 204, MPV 10.2, Immature Gran % (Auto) 0.400, Neut % (Auto) 75.0 H, Lymph % (Auto) 16.0 L, Loving % (Auto) 7.0, Eos % (Auto) 1.1, Baso % (Auto) 0.5, Absolute Neuts (auto) 6.4, Absolute Lymphs (auto) 1.37, Nucleated RBC % 0 06/13/20 06:30: Sodium 140, Potassium 3.4 L, Chloride 112 H, Carbon Dioxide 23.0, Anion Gap 5, BUN 4 L, Creatinine 0.61, Estim Creat Clear Calc 32.17, Est GFR (MDRD) Af Amer 121, Est GFR (MDRD) Non-Af 100, BUN/Creatinine Ratio 6.6 L, Glucose 110 H, Calcium 8.1 L Current Medications Acetaminophen (Acetaminophen 325 Mg Tablet) 650 mg PO Q6H PRN PRN PRN Reason: Pain Score 1-10/Temp > 100.7 F Last Admin: 06/13/20 06:00 Dose: 650 mg Documented by: Albuterol Sulfate (Albuterol 2.5 Mg/3 Ml Vial.Neb.) 2.5 mg INHALATION Q2H PRN PRN PRN Reason: SOB/Wheezing Brimonidine Tartrate (Brimonidine 0.15% 5 Ml Bottle) 1 drop LEFT EYE BID [facility] Last Admin: 06/12/20 22:50 Dose: Not Given Documented by: Dorzolamide HCl (Dorzolamide 2% 10ml Bottle) 1 drop LEFT EYE BID [facility] Last Admin: 06/12/20 22:50 Dose: Not Given Documented by: Famotidine (Famotidine 20 Mg Tablet) 20 mg PO DAILY [facility] Last Admin: 06/12/20 12:33 Dose: 20 mg Documented by: Metronidazole (Flagyl) 500 mg in 100 mls @ 100 mls/hr IV Q8 [facility] Last Infusion: 06/13/20 06:59 Dose: Infused Documented by: Ciprofloxacin (Cipro) 400 mg in 200 mls @ 200 mls/hr IV Q12 [facility] Last Infusion: 06/13/20 00:00 Dose: Infused Documented by: Latanoprost (Latanoprost 0.005% 1 Bottle) 1 drop LEFT EYE DAILY@2200 [facility] Losartan Potassium (Losartan Potassium 50 Mg Tablet) 50 mg PO DAILY [facility] Melatonin (Melatonin 3 Mg Tablet) 3 mg PO QHS PRN PRN PRN Reason: INSOMNIA Morphine Sulfate (Morphine 2 Mg/Ml Syringe) 2 mg IV Q3H PRN PRN PRN Reason: Pain Score 6-10 Nitroglycerin (Nitroglycerin (Inpatient Use) 0.4 Mg Tab.Subl) 0.4 mg SUBLINGUAL Q5M PRN PRN Reason: CARDIAC/CHEST PAIN Non-Formulary Medication (Netarsudil Mesylate) 1 drp EACH EYE QHS [facility] Oxycodone HCl (Oxycodone 5 Mg Tablet) 5 mg PO Q4H PRN PRN PRN Reason: Pain Score 4-5 Potassium Chloride (Potassium Chloride 20 Meq Tablet) [facility] Stop: 06/13/20 08:01 Last Admin: 06/12/20 12:33 Dose: 40 meq Documented by: Prochlorperazine Edisylate (Prochlorperazine 10 Mg/2 Ml Vial) 5 mg IV Q4H PRN PRN PRN Reason: Breakthrough Nausea/Vomiting Sodium Chloride (0.9% Saline Lock 10 Ml Syringe) 10 - 40 ml IV UD PRN PRN Reason: SALINE FLUSH Medical Necessity - Tobacco Use Smoking Status: Former smoker Assessment/Plan All Active Problems (Last Updated 05/18/19 @ 18:00 by Denae Mario) Acute on recurrent colon diverticulitis (Acute) Impression: acute on chronic diverticulitis/colitis with rectal bleeding Plan: can d/c at this point, she can follow up with her PCP I would recommend low residue diet for at least two weeks Continue with po antibiotics as you see fit
[2020-06-13] MEDS: Dorzolamide 2% 10ml Bottle 1 DRP LEFT EYE (08:13)
[2020-06-13] MEDS: Losartan Potassium 50 MG Tablet PO (08:14)
[2020-06-13] MEDS: Famotidine 20 MG Tablet PO (08:14)
[2020-06-13] MEDS: BRIMONIDINE 0.15% 5 ML Bottle 1 DRP LEFT EYE (08:16)
[2020-06-13] MEDS: Ciprofloxacin 400 MG/200 ML BAG 200 MG IV (11:32)
--- NOTE | 2020-06-13 14:25 | PCM.DC ---
- Discharge Diagnoses Current Active Problems: Current Active and Chronic Problems (Last Updated 05/18/19 @ 18:00 by Denae Mario) Non-ischemic cardiomyopathy (Chronic) Hemorrhoids (Chronic) Acute on recurrent colon diverticulitis (Acute) Hypertension (Chronic) Premature ventricular contractions (Chronic) Hyperlipemia (Chronic) You will use the following diet at home:: Other - low residue diet for 2 weeks. Your food should be the consistency of: Regular Your liquids should be the consistency of: Regular/Thin Discharge Activity: Return to Normal Activity Call your doctor if you observe: - - worsening abdominal pain. blood in stool. dark tarry stools. Instructions: Low-Residue Diet Allergies/Adverse Reactions: Allergies erythromycin base [Erythromycin Base] Allergy (Verified 06/12/20 06:37) Nausea/Vom/Diarrhea Penicillins Allergy (Verified 06/12/20 06:37) Hives Uxicfdb-Our-Bfy Reductase Inhibitor Adverse Reaction (Unknown, Verified 06/12/20 06:37) Unknown RAJAN Inhibitors Adverse Reaction (Verified 06/12/20 06:37) cough epinephrine Adverse Reaction (Verified 06/12/20 06:37) rapid heart rate Sulfa (Sulfonamide Antibiotics) Adverse Reaction (Verified 06/12/20 06:37) Unknown Medications to take at Discharge Brimonidine 0.15% [Alphagan P 0.15%] 1 drp LEFT EYE BID 10/22/13 Travoprost 0.004% [Travatan-Z 0.004% Eye Drop] 1 drp LEFT EYE DAILY 10/22/13 Dorzolamide HCl [Trusopt] 1 drp LEFT EYE BID 10/25/17 Omeprazole 40 mg PO DAILY 10/25/17 Netarsudil Mesylate [Rhopressa] 1 drp LEFT EYE QHS 01/19/18 albuterol sulfate 90 mcg/actuation aerosol inhaler 2 puff INHALATION Q6H PRN 04/25/19 calcium carbonate 600 mg calcium (1,500 mg) tablet 600 mg PO BID 04/25/19 cholecalciferol (vitamin D3) 10 mcg (400 unit) capsule 400 unit PO DAILY 04/25/19 omega-3 fatty acids 1,000 mg capsule 1,000 mg PO DAILY 04/25/19 Losartan Potassium [Cozaar] 50 mg PO DAILY 06/12/20 Ciprofloxacin [Cipro] 250 mg PO BID #12 tab 06/13/20 Metronidazole 500 mg PO TID #18 tab 06/13/20 The following prescriptions were given: Ciprofloxacin [Cipro] 250 mg PO BID #12 tab Transmission Status: Pending to [facility] Metronidazole 500 mg PO TID #18 tab Transmission Status: Pending to [facility] Primary Care Physician: Birgit Estrada MD [Primary Care Provider] - Within 2 Weeks Test Results: Test results from this visit will be discussed in further detail at your follow-up appointment, if applicable. Proposed Discharge Date: 06/13/20
--- NOTE | 2020-06-13 14:28 | PCM.DC.SUM ---
Discharge Date and Diagnosis - Problem List Patient Problems: Active and Suspected Problems (Last Updated 05/18/19 @ 18:00 by Denae Mario) Acute on recurrent colon diverticulitis (Acute) Date of Admission: 06/12/20 Date of Discharge: 06/13/20 - Primary Discharge Diagnosis Acute Problems: Active Problems (Last Updated 05/18/19 @ 18:00 by Denae Mario) Acute on recurrent colon diverticulitis (Acute) GI bleed. - Secondary Discharge Diagnosis Chronic Problems: Chronic Problems (Last Updated 05/18/19 @ 18:00 by Denae Mario) Non-ischemic cardiomyopathy (Chronic) Hemorrhoids (Chronic) Hypertension (Chronic) Premature ventricular contractions (Chronic) Hyperlipemia (Chronic) Hospital Course and Treatment Imaging Results: Clinical Impression(s) from Imaging Studies Abdomen/Pelvis CT 06/12/20 06:53 IMPRESSION: Inflammation of the splenic flexure, and proximal and mid descending colon. Possibilities include infectious colitis or diverticulitis. No abscess or perforation. Electronically Signed: Abilio Melissa MD at 8:20 EST Tel , Service support , Tim gen surg Operations: None Procedures: None Summary of Care Provided: The patient is a 84 year old F with abdominal pain and rectal bleeding. Patient had a CAT scan that showed diverticulitis. GI bleed did resolve. Patient was seen in consultation by general surgery recommended conservative management and low residue diet for 2 weeks. Patient's hemoglobin did drop from 14.6-11.8 but did not require any transfusions. Patient will be discharged home in stable condition. [] Patient Problems: Active and Suspected Problems (Last Updated 05/18/19 @ 18:00 by Denae Mario) Acute on recurrent colon diverticulitis (Acute) - Physical Exam Vitals/I&O's: Vital Signs Temp Pulse Resp BP Pulse Ox 36.9 C 63 18 137/49 H 96 06/13/20 08:04 06/13/20 08:04 06/13/20 08:04 06/13/20 08:04 06/13/20 08:04 Oxygen Delivery Method Room Air Weight: 66.3 kg Body Mass Index (BMI) 26.6 Intake and Output for Last 24 Hours 06/11/20 06/12/20 06/13/20 23:59 23:59 23:59 Intake Total 2627.08 / 2947.08 2339 Balance 2627.08 / 2947.08 2339 General: Alert, Cooperative, No apparent distress HEENT: Atraumatic, Normocephalic Oral: Moist Mucosa, No Gingival or Mucosal Lesions/ Ulcerations Neck: No Nodes, Thyroid Normal Size and Texture Lungs: Clear to auscultation, Normal air movement, No rhonchi, No wheeze, No rales Cardiovascular: Regular rate, Regular Rhythm, Normal S1, Normal S2, No murmurs Abdomen: Bowel Sounds Present, Soft, Non Tender, Non-Distended, No Hepato-splenomegaly Extremities: No edema, No Calf Tenderness Skin: No rashes, No breakdown Microbiology Past 72 Hours 06/12/20 14:16 Stool Stool Lactoferrin - Final 06/12/20 14:16 Stool Enteric Bacteriology - Final 06/12/20 14:16 Stool C. difficile DNA Amplification - Final Laboratory Results 06/12/20 13:48: Lactic Acid 1.4 06/12/20 21:00: Hgb 12.0, Hct 37.0 06/13/20 06:30: WBC 8.5, RBC 4.00 L, Hgb 11.8 L, Hct 35.9 L, MCV 89.8, MCH 29.5, MCHC 32.9, RDW Std Deviation 45.4 H, RDW Coeff of Tasha 13.9, Plt Count 204, MPV 10.2, Immature Gran % (Auto) 0.400, Neut % (Auto) 75.0 H, Lymph % (Auto) 16.0 L, Hickman % (Auto) 7.0, Eos % (Auto) 1.1, Baso % (Auto) 0.5, Absolute Neuts (auto) 6.4, Absolute Lymphs (auto) 1.37, Nucleated RBC % 0 06/13/20 06:30: Sodium 140, Potassium 3.4 L, Chloride 112 H, Carbon Dioxide 23.0, Anion Gap 5, BUN 4 L, Creatinine 0.61, Estim Creat Clear Calc 32.17, Est GFR (MDRD) Af Amer 121, Est GFR (MDRD) Non-Af 100, BUN/Creatinine Ratio 6.6 L, Glucose 110 H, Calcium 8.1 L Current Medications Acetaminophen (Acetaminophen 325 Mg Tablet) 650 mg PO Q6H PRN PRN PRN Reason: Pain Score 1-10/Temp > 100.7 F Last Admin: 06/13/20 06:00 Dose: 650 mg Documented by: Albuterol Sulfate (Albuterol 2.5 Mg/3 Ml Vial.Neb.) 2.5 mg INHALATION Q2H PRN PRN PRN Reason: SOB/Wheezing Brimonidine Tartrate (Brimonidine 0.15% 5 Ml Bottle) 1 drop LEFT EYE BID [facility] Last Admin: 06/13/20 08:16 Dose: 1 drop Documented by: Dorzolamide HCl (Dorzolamide 2% 10ml Bottle) 1 drop LEFT EYE BID [facility] Last Admin: 06/13/20 08:13 Dose: 1 drop Documented by: Famotidine (Famotidine 20 Mg Tablet) 20 mg PO DAILY [facility] Last Admin: 06/13/20 08:14 Dose: 20 mg Documented by: Metronidazole (Flagyl) 500 mg in 100 mls @ 100 mls/hr IV Q8 [facility] Last Infusion: 06/13/20 06:59 Dose: Infused Documented by: Ciprofloxacin (Cipro) 400 mg in 200 mls @ 200 mls/hr IV Q12 [facility] Last Infusion: 06/13/20 14:09 Dose: Infused Documented by: Latanoprost (Latanoprost 0.005% 1 Bottle) 1 drop LEFT EYE DAILY@2200 [facility] Losartan Potassium (Losartan Potassium 50 Mg Tablet) 50 mg PO DAILY [facility] Last Admin: 06/13/20 08:14 Dose: 50 mg Documented by: Melatonin (Melatonin 3 Mg Tablet) 3 mg PO QHS PRN PRN PRN Reason: INSOMNIA Morphine Sulfate (Morphine 2 Mg/Ml Syringe) 2 mg IV Q3H PRN PRN PRN Reason: Pain Score 6-10 Nitroglycerin (Nitroglycerin (Inpatient Use) 0.4 Mg Tab.Subl) 0.4 mg SUBLINGUAL Q5M PRN PRN Reason: CARDIAC/CHEST PAIN Non-Formulary Medication (Netarsudil Mesylate) 1 drp EACH EYE QHS [facility] Oxycodone HCl (Oxycodone 5 Mg Tablet) 5 mg PO Q4H PRN PRN PRN Reason: Pain Score 4-5 Prochlorperazine Edisylate (Prochlorperazine 10 Mg/2 Ml Vial) 5 mg IV Q4H PRN PRN PRN Reason: Breakthrough Nausea/Vomiting Sodium Chloride (0.9% Saline Lock 10 Ml Syringe) 10 - 40 ml IV UD PRN PRN Reason: SALINE FLUSH Discharge Diet: No Restrictions Discharge Activity: Return to Normal Activity Call your doctor if you observe: - - worsening abdominal pain. blood in stool. dark tarry stools. Home Medications: Medications to take at Discharge Brimonidine 0.15% [Alphagan P 0.15%] 1 drp LEFT EYE BID 10/22/13 Travoprost 0.004% [Travatan-Z 0.004% Eye Drop] 1 drp LEFT EYE DAILY 10/22/13 Dorzolamide HCl [Trusopt] 1 drp LEFT EYE BID 10/25/17 Omeprazole 40 mg PO DAILY 10/25/17 Netarsudil Mesylate [Rhopressa] 1 drp LEFT EYE QHS 01/19/18 albuterol sulfate 90 mcg/actuation aerosol inhaler 2 puff INHALATION Q6H PRN 04/25/19 calcium carbonate 600 mg calcium (1,500 mg) tablet 600 mg PO BID 04/25/19 cholecalciferol (vitamin D3) 10 mcg (400 unit) capsule 400 unit PO DAILY 04/25/19 omega-3 fatty acids 1,000 mg capsule 1,000 mg PO DAILY 04/25/19 Losartan Potassium [Cozaar] 50 mg PO DAILY 06/12/20 Ciprofloxacin [Cipro] 250 mg PO BID #12 tab 06/13/20 Metronidazole 500 mg PO TID #18 tab 06/13/20 Following Prescriptions Were Given to Patient: Ciprofloxacin [Cipro] 250 mg PO BID #12 tab Transmission Status: Pending to [facility] Metronidazole 500 mg PO TID #18 tab Transmission Status: Pending to [facility] Primary Care Physician: Birgit Estrada MD [Primary Care Provider] - Within 2 Weeks Patient Instructions: Low-Residue Diet Disposition: Home Minutes spent on discharge:: 32 Patient Condition:: Good Medical Necessity - Tobacco Use Smoking Status: Former smoker Meaningful Use Info Meaningful Use Diagnoses (Choose all that apply): None applicable Inpatient E&M: [id number] [facility]
--- NOTE | 2020-06-13 15:10 | CASEMGMT ---
RN CM LIBRARY INFORMATION TECHNICIAN CM to room to meet with patient for initial transition planning/care coordination assessment. GIULIANO BARRAGAN introduced self and role at [facility]. Pt voices understanding and consents to assessment at this time. Pt resting in bed in no distress at this time. Pt is A/O at this time and answers all questions appropriately. Care providers, pharmacy, and demographics verified/updated at this time. PCP: Dr Estrada Specialists: Dr Ashok Roque for glaucoma, Dr Dawn--[facility] cardiology. Preferred Pharmacy: [facility] Insurance: [employer] Insurance [facility] Prescription Benefit: Yes Living Will/HPOA: Has both LW and Healthcare POA, who is her primary and sons [place] and Ino as alternates. LNOK: , [place]. Has 4 adult children: [place], Ino, Kylee, and Betzy. Living Arrangements: Lives with her in 2-story home w/2-3 steps to enter. Denies difficulty with stairs. Independent w/ADL's and IADL's. Transportation: Pt states drives self and states no transportation concerns at this time. DME: Denies using any DME and denies needs. HHC/SNF: Denies hx of either. No needs identified. Pt wishes to return home and states has no concerns with going home at time of discharge. CM to follow any for any discharge planning/needs. Pt voices no concerns/needs at this time. Advised pt to ask for CM if any questions/concerns/needs arise. Voices understanding. PLAN: Home El FISHER RN, CM
== END 2020-06-13 16:37 | disposition home or self-care (01) | DRG 378 ==
LOC: ED 08:14 → PCU 10:14
PROVIDERS: Emergency Medicine; Admitting Provider Internal Medicine; Emergency Provider Emergency Medicine; PCP Internal Medicine
DX: K57.33 Diverticulitis of large intestine without perforation or abscess with bleeding (principal); I42.8 Other cardiomyopathies; I50.32 Chronic diastolic (congestive) heart failure; E78.5 Hyperlipidemia, unspecified; Z79.899 Other long term (current) drug therapy; Z87.891 Personal history of nicotine dependence; I11.0 Hypertensive heart disease with heart failure; K58.9 Irritable bowel syndrome, unspecified
CPT/HCPCS: 36415; 74177; 80048; 80053; 81001; 83605; 83630; 83690; 83735; 85014; 85018; 85025; 87493; 87506; 93005; 99284; J7030; Q9967; A4216; J0744

== ENCOUNTER 2020-07-28 13:56 | Outpatient (RCR) | payer MEDICARE, SELFPAY ==
[2020-06-12 10:48] VITALS: BMI 26.6
== END 2020-07-28 23:59 ==
LOC: IMMUN 13:56
PROVIDERS: PCP Internal Medicine; Visit Provider Family Medicine
DX: Z23 Encounter for immunization (principal)
CPT/HCPCS: 0011A; 0012A; 91301

== ENCOUNTER → 2020-11-12 08:38 | Outpatient (CLI) | payer MEDICARE, SELFPAY ==
[2020-10-28 15:41] VITALS: BMI 26.4
[2020-11-12 09:43] LABS: AST(SGOT) 19 U/L (15-37); Alanine Aminotransfer ALT/SGPT 22 U/L (13-56); Albumin, Serum 3.7 g/dL (3.2-5.0); Alkaline Phosphatase 68 U/L (45-117); Bilirubin, Direct 0.12 mg/dL (0.00-0.30); Cholesterol 234 mg/dL (200); Globulin 3.3 g/dL (2.2-4.2); High Density Lipoprotein 55 mg/dL; Triglycerides 160 mg/dL; Very Low Density Lipoprotein 32 mg/dL (5-40)
== END ==
PROVIDERS: PCP Internal Medicine; Visit Provider Nurse Practitioner Family
DX: E78.00 Pure hypercholesterolemia, unspecified (principal); E78.5 Hyperlipidemia, unspecified
CPT/HCPCS: 36415; 80061; 80076

== ENCOUNTER → 2020-11-24 09:46 | Outpatient (CLI) | payer MEDICARE, SELFPAY ==
[2020-10-28 15:41] VITALS: BMI 26.4
--- NOTE | 2020-11-24 09:48 | ECHOD_ITS ---
Reason For Study: CHF Procedure This was a 2D Doppler, Color Flow transthoracic echocardiogram. Exam performed in department. Left Ventricle Normal LV size. Mild global left ventricular systolic dysfunction. Stage 1 diastolic dysfunction. The estimated ejection fraction is 50 %. There is mild global hypokinesis of the left ventricle. Right Ventricle Normal RV size. Normal systolic function. Atria Normal left atrium. Normal right atrium. Mitral Valve Normal mitral valve. Mild (1+) eccentric mitral valve insufficiency. Tricuspid Valve Normal tricuspid valve. Aortic Valve Trisinus/trileaflet aortic valve. Mild (1+) eccentric aortic valve insufficiency. Pulmonic Valve Normal pulmonic valve. Great Vessels Normal aortic root. The pulmonary artery is normal size. Normal inferior vena cava. Pericardium/Pleural No pericardial effusion. MMode/2D Measurements & Calculations LVIDd: 4.4 cm IVSd: 1.0 cm Ao root diam: 3.1 cm LVIDs: 3.2 cm LVPWd: 1.1 cm RVDd: 2.9 cm FS: 28.2 % LAV(MOD-bp): 36.1 ml LVAd ap4: 28.1 cm2 SV(MOD-sp4): 43.0 ml LAV(MOD-bp) Indexed: 22.2 ml/m2 LVLd ap4: 7.5 cm LAV(MOD-sp2): 40.6 ml EDV(MOD-sp4): 88.5 ml LAV(MOD-sp4): 30.6 ml EDV(sp4-el): 89.8 ml LVAs ap4: 18.6 cm2 LVLs ap4: 6.7 cm ESV(MOD-sp4): 45.5 ml ESV(sp4-el): 43.3 ml EF(MOD-sp4): 48.6 % EF(sp4-el): 51.7 % SV(sp4-el): 46.4 ml LA A4 area: 13.2 cm2 LA dimension(2D): 3.9 cm RA A4 area: 12.5 cm2 Doppler Measurements & Calculations MV E max herson: 70.7 cm/sec Lat Peak E' Herson: 5.0 cm/sec Med Peak E' Herson: 3.5 cm/sec MV A max herson: 114.4 cm/sec E/E' lat: 14.0 E/E' med: 20.2 MV E/A: 0.62 Ao V2 max: 120.1 cm/sec AI max herson: 446.7 cm/sec LV V1 max: 85.8 cm/sec Ao max P.8 mmHg AI max P.8 mmHg LV V1 max P.9 mmHg AI dec slope: 228.7 cm/sec2 AI P1/2t: 572.0 msec PA V2 max: 76.9 cm/sec ECHO/Echo Complete Interpretation Summary Normal LV size. Mild global left ventricular systolic dysfunction. Stage 1 diastolic dysfunction. Mild (1+) eccentric mitral valve insufficiency. The estimated ejection fraction is 50 %. Mild (1+) eccentric aortic valve insufficiency. Ordering Physician: [place] Miller/Carlos Eduardo Leihg Referring Physician: Birgit Estrada M.D. Performed By: Heather Munguia RDCS
== END ==
PROVIDERS: PCP Internal Medicine; Referring Provider Nurse Practitioner Family; Visit Provider Nurse Practitioner Family
DX: I42.8 Other cardiomyopathies (principal); I10 Essential (primary) hypertension; E78.5 Hyperlipidemia, unspecified
CPT/HCPCS: 93306

== ENCOUNTER 2022-12-12 15:30 | Outpatient (RCR) | payer MEDICARE, SELFPAY ==
--- NOTE | 2022-10-25 12:53 | HP.PTEVAL_ITS ---
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 Date of Evaluation: 10/25/22 Physical Therapist: Guera Mccallum PT, Cert MDT - Visit Plan Frequency: 2-3x /Week Duration: 4-6 Weeks Plan: GENTLE R SHLD JOINT MOBILIZATION TO INCREASE ROM. R SHLD A/AA/PROM, STRETCHING AND STRENGTHENING TO HELP MEET SET GOALS. PATIENT AGREEABLE. - Subjective THIS PATIENT PRESENTS TO PHYSICAL THERAPY WITH C/O R SHLD PAIN INTO RIGHT UE INTO ELBOW, FOREARM AND SOME TINGLING AND NUMBNESS IN MIDDLE FINGERS. Present since: MID SEPTEMBER 2022 IS WHEN DISCOMFORT STARTED AND THEN FELL FORWARD ON ARMS AT HOME 10/03/22 AND EXACERBATED PAIN. ALSO HAD AN EPISODE OF WRENCHING R SHLD REACHING FOR STEERING WHEEL AFTER THAT. Pain Scale: Worst - 7/10 Least - 2/10. Currently: 08/17. Commenced as a result of: PULLING A STRING ON LIGHT FICTURE ABOVE HEAD WHILE IN [place]. Symptoms at onset: RIGHT ANTERIOR SHLD DISCOMFORT. Worse: TRYING TO LIFT ARM TO COMB HAIR, BRUSHING TEETH, REACHING FORWARD, UP AND OUT TO THE SIDE. Better: NOT USING IT, ALEVE, TYLONOL. Disturbed sleep: ONCE IN AWHILE. Previous history/Previous treatment: UNRE MARKABLE. This episode: R SHLD INJECTION 10/19/22 - PATIENT STATES IT DIDN'T HELP RIGHT AWAY BUT A FEW DAYS AFTER SEEMED TO HELP. Dizziness: NO. Tinnitis: NO. Nausea: NO. Shortness of Breath: NO. Difficulty Swollowing: NO. Gait: NORMAL. Accidents: NO. Unexplained weight loss: NO. Imaging: RECENT R SHLD X-RAY SHOWING ARTHRITIS PER PATIENT REPORT WITH ROTATOR CUFF ISSUE. PMH/Recent major surgery: HTN, ASTHMA - Objective Sitting Posture/Standing Posture: FH. RSH'S. Active Correction of posture: NE. Other Observations: INDEP GAIT AND TRANSFERS. Sensory deficit: HORACE UE LIGHT TOUCH SENSATION GROSSLY INTACT AND SYMMETRICAL. ROM deficit: R SHLD AROM IN SITTIN DEG, ABD 110 DEG. SUPINE IR/ER W/70 DEG ABD = 50/58 DEG. PATIENT C/O R SHLD PAIN WITH R SHLD ROM TESTING ALL PLANES. RIGHT ELBOW, WRIST AND HAND ROM WFL. L SHLD AROM: FLEX 160 DEG, ABD 155 DEG. Motor deficit: R HAND DOMINANT WITH A R SAMPLE BODY BUILDER STRENGTH OF 35 LBS AND LEFT 30 LBS. RIGHT UE STRENGTH: SHLD 2+ to 3-/5, ELBOW 4/5. L UE: SHLD 4-/5, ELBOW 4/5. Reflexes: HORACE UE DTR'S 2/3. Cervical Mvmt Loss: Flex: NIL. Pro: NIL. Ext: MOD. Ret: CHANCE. RSB: MIN. LSB: MOD. R Rot: MIN. L Rot: MOD. PATIENT DENIES NECK AND HORACE UE PAIN WITH CERVICAL ROM TESTING ALL PLANES MY NECK IS JUST A LITTLE STIFF. Postural strength: POOR. Palpation: NO ACUTE NECK OR SHLD TENDERNESS. TREATMENT: INSTRUCTED PATIENT IN GENTLE PROM/STRETCHING OF R SHLD WITH TABLE WALK-AWAYS X 5 EVERY 2-3 HOURS TOLERATED. ALSO INSTRUCTED PATIENT IN APPROPRIATE ACTIVITY MODIFICATIONS TO DECREASE INFLAMMATION. PATIENT DEMONSTRATED/COMMUNICATED A GOOD UNDERSTANDING OF ALL INSTRUCTIONS AFTER GIVEN. - Balance/Special Test Scores Quick DASH Score: 34.0900 - Goals Goal 1:: DECREASE C/O R UE PAIN Goal Time Frame: 4-6 Weeks Goal 2:: INCREASE PAINFREE R SHLD FUNCTIONAL ROM TO EASE ADL'S. Goal Time Frame: 4-6 Weeks Goal 3:: IMPROVE R SHLD FUNCTIONAL STRENGTH TO EASE ADL'S. Goal Time Frame: 4-6 Weeks Goal 4:: PATIENT WILL BE INDEP WITH A HEP FOR CONTINUED IMPROVEMENT ONCE FORMAL PHYSICAL THERAPY CONCLUDES. Goal Time Frame: 4-6 Weeks - Anticipated Interventions Patient/Client Instruction: Educate patient on: Condition, Plan of Care, Risk Factors For the Purpose of:: To improve self management Therapeutic Exercise to Include: Strength training, Body mechanics, Postural training, Flexibilty training, Neuromotor development, Scapular Stren gth/Stabilization For the Purpose of:: To decrease pain, To increase ROM, To improve muscle performance and motor function, To increase tolerance to activity/condition/position, To improve ability of physical actions for home/community/work/leisure Manual Therapy Techniques to Include: Mobilization Comment: GENTLE R SHLD JOINT MOBILIZATION Cryotherapy (ice pack, ice massage): Yes Thermo therapy (hot pack): Yes For the Purpose of:: To decrease pain, To decrease swelling/inflammation, To improve nutrient delivery to tissue Thank you for the opportunity to evaluate your patient. For Medicare and Medicare HMO plans, please review the plan of care and approve it. It will need to be FAXED BACK to us at [phone] for Medicare purposes. For Medicare only, by signing this I certify the plan of care. Please let me know if there are questions or concerns regarding this plan of care. Physician Signature: Date:
--- NOTE | 2022-11-22 10:32 | HP.PTREVAL ---
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 Please see the progress note below for an update on the physical therapy plan of care! Subjective: PATIENT REPORTS INCREASED PAIN FOR NO APPARENT REASON SINCE LAST VISIT. SHE REPORTS SHE WORKED PRETTY HARD IN THERAPY LAST SESSION AND SHE ISN'T SURE IF THE EX'S AGGREVATED IT OR SOMETHING SHE MIGHT HAVE DONE AFTER. PATIENT REPORTS SHE HAS HAD TO TAKE SOME TYLONOL AND ALEVE FOR PAIN AND SHE WASN'T HAVING TO DO THAT BEFORE SATURDAY. A LOT OF SEVERE R ELBOW PAIN AFTER LAST VISIT -03/17. PATIENT REPORTS THAT IN HIND SIGHT SHE WISHES SHE WOULD HAVE RESTED A LITTLE MORE IN BETWEEN EX SETS LAST VISIT. STATES SHE HAS BEEN RESTING HER ARM SINCE SATURDAY AND GETTING BETTER AGAIN. Objective/Function: PATIENT WAS SEEN TODAY FOR RE-ASSESSMENT OF PROGRESS TOWARD THE SET PT GOALS AND THE NEED FOR FURTHER PHYSICAL THERAPY VS READINESS FOR DISCHARGE. PATIENT WAS MAKING GOOD PROGESS TOWARD ALL PT GOALS BEFORE SET BACK. PATIENT FEELS SHE COULD BENEFIT FROM MORE THEREPY FOR MORE INSTRUCTION IN PROPER EX TECHNIQUE AND FOR MANUAL TREATMENT (CAN LAY SUPINE FINE LONG SUPPORT UNDER LEGS) AND THIS PT AGREES. UPON EXAM TODAY: ROM deficit: R SHLD AROM IN SITTIN DEG, ABD 155 DEG. SUPINE IR/ER W/80 DEG ABD = 70/58 DEG. PATIENT C/O R SHLD PAIN/CATCHING WITH R SHLD ROM TESTING ALL PLANES. RIGHT ELBOW, WRIST AND HAND ROM WFL. Motor deficit: RIGHT UE STRENGTH: SHLD 4-/5, ELBOW 4/5. OTHER: DESPITE FLARE UP, PATIENTS R SHLD ROM AND STRENGTH IS STILL IMPROVED COMPARED TO INITIAL EVAL AND SHE IS LEARNING A HEP TO TRY TO MAINTAIN IMPROVEMENT. Plan Plan: *MANUAL THERAPY EA VISIT AND DETAILED WRITTEN HEP INSTRUCTIONS EA VISIT*. GENTLE R SHLD JOINT MOBILIZATION TO INCREASE PAINFREE ROM R SHLD, A/AA/PROM, STRETCHING AND STRENGTHENING TO HELP MEET SET GOALS. PATIENT AGREEABLE Balance/Gait/Functional tests - Balance/Special Test Scores Quick DASH Score: 43.1800 Goals Goal 1:: DECREASE C/O R UE PAIN Goal Time Frame: 4-6 Weeks Goal Progress: Progressing Goal 2:: INCREASE PAINFREE R SHLD FUNCTIONAL ROM TO EASE ADL'S. Goal Time Frame: 4-6 Weeks Goal Progress: Progressing Goal 3:: IMPROVE R SHLD FUNCTIONAL STRENGTH TO EASE ADL'S. Goal Time Frame: 4-6 Weeks Goal Progress: Progressing Goal 4:: PATIENT WILL BE INDEP WITH A HEP FOR CONTINUED IMPROVEMENT ONCE FORMAL PHYSICAL THERAPY CONCLUDES. Goal Time Frame: 4-6 Weeks Goal Progress: Progressing Anticipated Interventions Patient/Client Instruction: Educate patient on: Condition, Plan of Care, Risk Factors For the Purpose of:: To improve self management Therapeutic Exercise to Include: Strength training, Body mechanics, Postural training, Flexibilty training, Neuromotor development, Scapular Strength/Stabilization For the Purpose of:: To decrease pain, To increase ROM, To improve muscle performance and motor function, To increase tolerance to activity/condition/position, To improve ability of physical actions for home/community/work/leisure Manual Therapy Techniques to Include: Mobilization Comment: GENTLE R SHLD JOINT MOBILIZATION Cryotherapy (ice pack, ice massage): Yes Thermo therapy (hot pack): Yes For the Purpose of:: To decrease pain, To decrease swelling/inflammation, To improve nutrient delivery to tissue Please do not hesitate to contact me at [phone] by phone or if you have questions or concerns regarding this new plan of care! Sincerely, Guera Mccallum, PT, Cert MDT
--- NOTE | 2023-03-08 15:48 | HP.PTDCNRP_ITS ---
Patient Information Patient Information: SHIRA MEZA was seen in my office for initial evaluation on 10/25/22. The following Plan of Care was established for this patient: POC Established Initial Frequency: 2-3x /Week Initial Duration: 4-6 Weeks Anticipated Interventions Patient/Client Instruction: Educate patient on: Condition, Plan of Care and Risk Factors For the Purpose of:: To improve self management Therapeutic Exercise to Include: Strength training, Body mechanics, Postural training, Flexibilty training, Neuromotor development and Scapular Strength/Stabilization For the Purpose of:: To decrease pain, To increase ROM, To improve muscle performance and motor function, To increase tolerance to activity/con dition/position and To improve ability of physical actions for home/community/work/leisure Manual Therapy Techniques to Include: Mobilization Comment: GENTLE R SHLD JOINT MOBILIZATION Cryotherapy (ice pack, ice massage): Yes Thermo therapy (hot pack): Yes For the Purpose of:: To decrease pain, To decrease swelling/inflammation and To improve nutrient delivery to tissue Last Seen Last Seen: This patient was last seen in our office 12/12/22. Pertinent comments regarding their Physical therapy will appear below: This patient has not returned to Physical Therapy and is appropriate to return to MD for further follow-up as needed. At this point I will be discontinuing this patient from physical therapy. I would be happy to see this patient again in the future if found appropriate by the physician. Thank you! Guera Mccallum, PT, Cert MDT Balance/Gait/Functional tests Balance/Special Test Scores Quick DASH Score: 43.1800
== END 2022-12-12 19:00 | disposition home or self-care (01) ==
LOC: PT 15:30
PROVIDERS: PCP Internal Medicine; Referring Provider Physician Assistant Surgical; Visit Provider Physician Assistant Surgical
DX: M19.011 Primary osteoarthritis, right shoulder (principal); S46.011D Strain of muscle(s) and tendon(s) of the rotator cuff of right shoulder, subsequent encounter
CPT/HCPCS: 97110; 97140; 97162; 97164; 97530

== ENCOUNTER 2023-01-19 19:27 | Emergency (ER) | payer MEDICARE, SELFPAY ==
[2023-01-19 19:28] VITALS: BP 194/73; PULSE 86; RESP 18; TEMP 35.7; O2SAT 96; BMI 28.0
--- NOTE | 2023-01-19 19:34 | EDS_ITS ---
HPI <TAN Perez - Last Filed: 01/19/23 20:16> History of Present Illness Chief Complaint: Hypertension Narrative Narrative: 87-year-old female with history of HTN, HLD, nonischemic cardiomyopathy presents with high blood pressure. 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 She takes losartan 50 mg in the morning and amlodipine 2.5 mg at night. They office gave her home BP cuff and told her to monitor for 2 weeks and if it was consistently high they would increase the amlodipine to 5 mg. She checked it multiple times today and this evening it was 170-180 systolic so she became anxious about this. She normally takes her amlodipine at 10 PM but took it at 7 PM when it was reading high. She has had no chest pain, shortness of breath, headache, or focal neurological symptoms. [facility] <TAN Perez - Last Filed: 01/19/23 20:16> [facility] Medical History Asthma Diverticulosis Essential hypertension Gastritis GERD (gastroesophageal reflux disease) Glaucoma Hemorrhoids Hyperlipemia Non-ischemic cardiomyopathy Premature ventricular contractions Home Medications dorzolamide 2 % eye drops 1 drp LEFT EYE BID Eye Drop 10/25/17 [History Last Taken 06/12/20 08:00] netarsudil 0.02 % eye drops 1 drp LEFT EYE QHS Eye Drop 01/19/18 [History Last Taken 06/11/20 21:00] albuterol sulfate 90 mcg/actuation aerosol inhaler 2 puff inhalation Q6H PRN Sob &/Or Wheezing 04/25/19 [History Last Taken Unknown] ascorbic acid (vitamin C) 500 mg tablet 500 mg PO DAILY 02/28/21 [History Last Taken Unknown] latanoprostene bunod 0.024 % eye drops 1 drp ophthalmic (eye) QHS 02/28/21 [History Last Taken Unknown] flaxseed oil 1,000 mg capsule 1,000 mg PO DAILY 06/04/22 [History Last Taken Unknown] multivitamin (Daily Multi-Vitamin tablet) 1 tab PO DAILY 06/04/22 [History Last Taken Unknown] amlodipine 2.5 mg tablet 2.5 mg PO DAILY #90 tabs 07/19/22 [Rx Last Taken Unknown] losartan 50 mg tablet 50 mg PO DAILY #90 tabs 01/03/23 [Rx Last Taken Unknown] brimonidine 0.15 % eye drops 1 drp ophthalmic (eye) BID Eye Drop 01/18/23 [History Last Taken Unknown] fluticasone propionate 50 mcg/actuation nasal spray,suspension 1 spray intranasal DAILY 01/18/23 [History Last Taken Unknown] omeprazole 20 mg capsule,delayed release 20 mg PO DAILY 01/18/23 [History Last Taken Unknown] Allergy/AdvReac Type Severity Reaction Status Date / Time erythromycin base Allergy Nausea/Vom/ Verified 01/19/23 19:28 [Erythromycin Base] Diarrhea Penicillins Allergy Hives Verified 01/19/23 19:28 Cskbeqc-XQB-XdN Reductase AdvReac Unknown Myalgia Verified 01/19/23 19:28 Inhibitor [Mrbqbxq-Vrh-Ane Reductase Inhibitor] RAJAN Inhibitors AdvReac cough Verified 01/19/23 19:28 epinephrine AdvReac rapid Verified 01/19/23 19:28 heart rate Sulfa (Sulfonamide AdvReac rash or Verified 01/19/23 19:28 Antibiotics) hives Surgical History History of cataract surgery History of hysterectomy History of tonsillectomy History of trabeculectomy (03/12/19) Social History Smoking Status: Former smoker ROS <TAN Perez - Last Filed: 01/19/23 20:16> ROS ED ROS Narrative Constitutional: Negative for fever, chills, malaise. Eyes: Negative for visual change. CVS: Negative for palpitations, chest pain, syncope. Respiratory: Negative for shortness of breath, cough, orthopnea. GI: Negative for abdominal pain, nausea, vomiting. Neuro: Negative for headache, motor/sensory dysfunction. EXAM <TAN Perez - Last Filed: 01/19/23 20:16> Physical Exam Narrative Exam Narrative: CONST: Patient sitting in no acute distress. EYES: Normal inspection. NECK: Normal inspection. RESP: No respiratory distress, CTAB. CVS: Regular rate and rhythm, no murmur, no gallop. ABD: Soft and nontender, no guarding or rebound, nondistended. SKIN: Color normal, no rash, warm, dry, intact. EXTREMITIES: Normal appearance, no pedal edema. NEURO: Oriented x4. PSYCH: Normal affect. Const Vital Signs: 01/19/23 19:28 01/19/23 19:38 01/19/23 19:55 Temperature 96.3 F L Temperature Source Temporal Pulse Rate 86 Respiratory Rate 18 Respiratory Effort Normal Respiratory Pattern Normal Blood Pressure 194/73 H 186/84 H Blood Pressure Mean 113 118 Pulse Ox 96 01/19/23 20:14 Temperature Temperature Source Pulse Rate Respiratory Rate Respiratory Effort Respiratory Pattern Blood Pressure 166/58 H Blood Pressure Mean Pulse Ox <Dr. Hemant Powell MD - Last Filed: 01/19/23 20:15> Physical Exam Const Vital Signs: 01/19/23 19:28 01/19/23 19:38 01/19/23 19:55 Temperature 96.3 F L Temperature Source Temporal Pulse Rate 86 Respiratory Rate 18 Respiratory Effort Normal Respiratory Pattern Normal Blood Pressure 194/73 H 186/84 H Blood Pressure Mean 113 118 Pulse Ox 96 01/19/23 20:14 Temperature Temperature Source Pulse Rate Respiratory Rate Respiratory Effort Respiratory Pattern Blood Pressure 166/58 H Blood Pressure Mean Pulse Ox MDM <TAN Perez - Last Filed: 01/19/23 20:16> [facility] Narrative Medical decision making narrative: History gathered from: Patient and daughter Patient has asymptomatic hypertension with a chronic history of this. BP is 194/73 with otherwise normal vital signs. She is in no distress and exam is benign. According to ACEP guidelines there is no indication for acute labs or imaging. BP is trending down and she was told to keep a log and call cardiology. She was discharged in stable condition. External records reviewed: Cardiology visit on 01/18/2023. Most recent echo November 2020 showed EF of 51% and stage I diastolic dysfunction. For hypertension they recommended to continue amlodipine 2.5 mg and losartan 50 mg?if pressures remain elevated plan was to increase to amlodipine 5 mg daily. I have personally performed a face to face assessment of the patient and have reviewed the YAIR Note. I performed a substantive portion of the visit including all aspects of the following. My puentes findings include: History is 87-year-old female known history of hypertension on 2 antihypertensive meds including amlodipine and losartan. Today blood pressure was elevated. She was having no symptoms. No headache. No chest pain. No shortness of breath. She got concerned and came in. She also took an extra amlodipine at home. Currently she feels fine without symptoms. Exam is [well-appearing 87-year-old female. Looks younger than her stated age. Initial blood pressure 194/73. When I was in the room it was 168/56. Clinically looks well. No distress. HEENT exam normal. No slurred speech. No facial droop. Lungs clear. Heart regular rhythm no murmur. Abdomen soft nontender. Moving all 4 extremities. Awake alert. Answering questions following commands. No focal motor deficits.] Medical Decision Making [discussed with patient treatment of high blood pressure. She needs no testing. She will check her blood pressure at home. Log the readings. 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 Both she and her daughter are comfortable with her being discharged home.] Other additions or changes: [None] <Dr. Hemant Powell MD - Last Filed: 01/19/23 20:15> [facility] Narrative Medical decision making narrative: History gathered from: Patient and daughter Patient has asymptomatic hypertension with a chronic history of this. BP is 194/73 with otherwise normal vital signs. She is in no distress and exam is benign. According to ACEP guidelines there is no indication for acute labs or imaging. External records reviewed: Cardiology visit on 01/18/2023. Most recent echo November 2020 showed EF of 51% and stage I diastolic dysfunction. For hypertension they recommended to continue amlodipine 2.5 mg and losartan 50 mg?if pressures remain elevated plan was to in crease to amlodipine 5 mg daily. I have personally performed a face to face assessment of the patient and have reviewed the YAIR Note. I performed a substantive portion of the visit including all aspects of the following. My puentes findings include: History is 87-year-old female known history of hypertension on 2 antihypertensive meds including amlodipine and losartan. Today blood pressure was elevated. She was having no symptoms. No headache. No chest pain. No shortness of breath. She got concerned and came in. She also took an extra amlodipine at home. Currently she feels fine without symptoms. Exam is [well-appearing 87-year-old female. Looks younger than her stated age. Initial blood pressure 194/73. When I was in the room it was 168/56. Clinically looks well. No distress. HEENT exam normal. No slurred speech. No facial droop. Lungs clear. Heart regular rhythm no murmur. Abdomen soft nontender. Moving all 4 extremities. Awake alert. Answering questions following commands. No focal motor deficits.] Medical Decision Making [discussed with patient treatment of high blood pressure. She needs no testing. She will check her blood pressure at home. Log the readings. 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 Both she and her daughter are comfortable with her being discharged home.] Other additions or changes: [None] History & Record Review Discussion w/independent historian: Patient and Family Discharge Plan Triage Chief Complaint: Hypertension ED Midlevel Provider: Ashlyn Hatch ED Provider: Hemant Powell Dx/Rx/DC Orders Clinical Impression: Asymptomatic hypertension Instructions: Blood Pressure Check Steps Prescriptions: No Action albuterol sulfate 90 mcg/actuation HFA aerosol inhaler 2 puff INHALATION Q6H PRN (Reason: Sob &/Or Wheezing) fluticasone propionate 50 mcg/actuation spray,suspension 1 spray intranasal DAILY Patient Comments: instill 1 spray into each nostril once daily Vyzulta 0.024 % drops 1 drp ophthalmic (eye) QHS ascorbic acid (vitamin C) 500 mg tablet 500 mg PO DAILY flaxseed oil 1,000 mg capsule 1,000 mg PO DAILY Rx Instructions: administer with a meal multivitamin [Daily Multi-Vitamin] Tablet 1 tab PO DAILY omeprazole 20 mg capsule,delayed release(DR/EC) 20 mg PO DAILY brimonidine 0.15 % drops 1 drp ophthalmic (eye) BID Rx Instructions: Both eye dorzolamide 10 ML drops 1 drp LEFT EYE BID Rx Instructions: Left Eye netarsudil 2.5 ML drops 1 drp LEFT EYE QHS amlodipine 2.5 mg tablet 2.5 mg PO DAILY Qty: 90 3RF losartan 50 mg tablet 50 mg PO DAILY Qty: 90 3RF Primary Care Provider: Birgit Estrada Referrals: Birgit Estrada MD [Primary Care Provider] - Activity Restrictions/Additional Instructions: Keep taking your meds as prescribed. Check your BP once in the morning and once in the evening and keep a log and call your paint roller assembler's office with the results. Disposition Disposition: Home, Self Care
[2023-01-19 19:55] VITALS: BP 186/84
[2023-01-19 20:14] VITALS: BP 166/58
[2023-01-19 20:33] VITALS: BP 166/63
== END 2023-01-19 20:34 | disposition home or self-care (01) ==
PROVIDERS: Emergency Provider Emergency Medicine; PCP Internal Medicine; Visit Provider Emergency Medicine
DX: I10 Essential (primary) hypertension (principal); I42.8 Other cardiomyopathies; Z87.891 Personal history of nicotine dependence; E78.5 Hyperlipidemia, unspecified; J45.909 Unspecified asthma, uncomplicated; Z79.899 Other long term (current) drug therapy
CPT/HCPCS: 99282

== ENCOUNTER → 2024-03-19 | Outpatient (CLI) | payer MEDICARE, SELFPAY ==
--- NOTE | 2024-03-19 11:40 | CT_ITS ---
STUDY: CT MAXILLOFACIAL SINUSES REASON FOR EXAM: Female, 88 years old. Other chronic sinusitis RADIATION DOSAGE (If Supplied By Facility): CTDIvol = ( 33.06 ) mGy, DLP = ( 759.47 ) mGycm TECHNIQUE: The patient was scanned in a multi detector CT scanner. High resolution axial imaging was performed without the administration of intravenous contrast material. Sagittal and coronal images were reconstructed. Individualized dose optimization techniques were used for this CT. COMPARISON: None. FINDINGS: FRONTAL SINUSES: Normal aeration, without mucosal inflammatory disease. ETHMOIDAL SINUSES: Normal aeration, without mucosal inflammatory disease. MAXILLARY SINUSES: Normal aeration, without mucosal inflammatory disease. SPHENOIDAL SINUSES: Partial opacification of the right sphenoid sinus. There is patency of the bilateral maxillary infundibuli with normal uncinate processes, ethmoid bullae, and hiatus semilunaris. Normal bilateral middle turbinates. Normal bilateral inferior turbinates. There is a mild right sided nasal septal deviation, but without a nasal septal spur. There is patency of the bilateral nasal airways. The visualized osseous structures are normal. The visualized bilateral orbital contents are normal. CT/Sinus/Facial Bone IMPRESSION: Partial opacification of the right sphenoid sinus. Electronically Signed: Magno Contreras MD at 14:40 EDT ,
[2024-03-19 12:25] LABS: Absolute Lymphocyte Count 1.97 X10^3/uL (0.83-4.51); Absolute Neutrophil Count 3.9 X10^3/uL (2.0-7.7); Basophil# 0.03 X10^3/uL; Basophil% 0.5 % (0-1); Eosinophil# 0.22 X10^3/uL; Eosinophils% 3.4 % (0-5); Hematocrit 42.5 % (37-47); Hemoglobin 13.1 g/dL (12.0-15.0); Lymphocyte # 1.97 X10^3/ul (0.83-4.51); Lymphocyte % 30.2 % (19-41); Mean Corp Hgb Conc 30.8 g/dL (32-36); Mean Corpuscular Hgb 29.1 pg (27.0-32.0); Mean Corpuscular Volume 94.4 fL (81-99); Mean Platelet Vol. 9.2 fl (6.2-12.0); Monocyte# 0.41 X10^3/uL; Monocyte% 6.3 % (0-10); NRBC Flagged by Analyzer 0 % (0-5); Neutrophil # 3.87 X10^3/uL (2.7-7.7); Neutrophil % 59.1 % (47-70); Platelet Count 305 K/mm3 (150-450); RBC Distribution Width CV 14.3 % (11.6-14.6); RBC Distribution Width SD 49.5 fl (35.1-43.9); White Blood Count 6.5 K/mm3 (4.4-11.0)
== END | disposition home or self-care (01) ==
PROVIDERS: Physician Assistant Medical; PCP Internal Medicine; Referring Provider Otolaryngology; Visit Provider Otolaryngology
DX: J32.8 Other chronic sinusitis (principal)
CPT/HCPCS: 36415; 70486; 85025

== ENCOUNTER 2024-06-03 11:00 | Outpatient (RCR) | payer MEDICARE, SELFPAY ==
--- NOTE | 2024-05-25 08:21 | HP.PTEVAL ---
Patient's Visit Information Visit Information Visit Information: SHIRA MEZA is a 88 year old F referred to Physical Therapy by TAN Bowers with a diagnosis of Lumbar scoliosis. Date of Evaluation: 05/20/24 Physical Therapist: Milo Jose DPT Visit Plan Frequency: 2x /Week Duration: 4 Weeks Plan: 1) US to lumbar spine and erector spinae. 2) prone prop 3) neutral spine core stability. Subjective Subjective: Pt. is here today for her initial evaluation with diagnosis of lumbar scoliosis. Pt. repots a few weeks ago she was moving boxes at home and had increased low back pain since. Pt. her pain has been consistent since. She reports no radicular symptoms, but has marked low back pain. Pt. reports no N/T in either LE. Pt. is sleeping okay, but is having increased pain in the AMs. pt. reports prolonged sitting is painful ats well. Pt. is hopeful to increase her strength and reducing symptoms in order to get back to all activities without limitations. Pt. is going to [place] in ~3 weeks. Pt. has pain with bending over as well. Pain Lumbar spine: Pain Intensity (Out of 10): 3 Pain Intensity Range: 2 and 7 Objective Objective: POSTURE: Pt. has slight flexed posture in stance. Pt. is able to correct with VCing. Pt. matthews slight lateral shift, is most likely due to her scoliosis. PALPATION: Pt. has tenderness throughout lumbar spine, both with PAs and with palpation of erector spinae. NEURO: normal throughout. ROM: LUMBAR SPINE: flexion mod loss increase NW, ext mod loss mild increase NW, SB min loss B NE, rotation min/mod loss increase NW B. Pt. has tightness in B HS and hip flexors. MMT: 4+/5 throughout BLEs. Pt. has poor+ core strength. GAIT: fairly normal gait pattern. Pt. has slight guarded posture with gait. STAIRS: normal with use of 1 HR. Mild increase with ascending. Special Tests L/S Slump test left side: Negative L/S Slump test right side: Negative L/S Left Straight Leg Raise: Negative L/S Right Straight Leg Raise: Negative Lumbar Standing: Flexion - Mechanical Response: No effect Lumbar Standing: Flexion - Symptoms During Testing: Increases Lumbar Standing: Flexion - Symptoms After Testing: No worse Lumbar Standing: Extension - Mechanical Response: No effect Lumbar Standing: Extension - Symptoms During Testing: Increases Lumbar Standing: Extension - Symptoms After Testing: No worse Lumbar Lying: Extension - Mechanical Response: No effect Lumbar Lying: Extension - Symptoms During Testing: Decreases Lumbar Lying: Extension - Symptoms After Testing: No better Balance/Special Test Scores Oswestry Low Back Score: 20 Goals Goal 1:: Pt. to be I with HEP. Goal Time Frame: 4-6 Weeks Goal 2:: STG: Pt. to sleep throughout the night without increase in symptoms. Goal Time Frame: 2 Weeks Goal 3:: LTG: Pt. to have 0/10 pain in lumbar spine with all ADls. Goal Time Frame: 4-6 Weeks Goal 4:: LTG: Pt. to have full lumbar ROM without increase in symptoms. Goal Time Frame: 4-6 Weeks Goal 5:: LTG: Pt. to have increased core strength to fair in order to reduce stress applied to lumbar spine. Goal Time Frame: 4-6 Weeks Rehabilitation Potential Physical Therapy Diagnosis: Pt. has signs and symptoms consistent with Lumbar scoliosis. Pt. has marked hypombility and core weakness. She would benefit from PT to address the above limitations progressing back to all recreational and household activities without limitations. Rehabilitation Potential: Good Anticipated Interventions Patient/Client Instruction: Educate patient on: Condition, Plan of Care, Risk Factors and Benefits of Fitness Program For the Purpose of:: To foster healthy habits, To improve decision making, To facilitate caregiver knowledge, To improve self management, To prevent re-injury and To improve ability to perform tasks related to life management Therapeutic Exercise to Include: Strength training, Power training, Postural training, Passive ROM and Active ROM For the Purpose of:: To decrease pain, To increase ROM, To improve nutrient delivery to tissue, To increase oxygenation perfusion, To improve muscle performance and motor function and To improve ability to perform ADL's Manual Therapy Techniques to Include: Mobilization and Soft tissue mobilization For the Purpose of:: To decrease pain, To decrease swelling/inflammation and To increase ROM Ultrasound (thermal/non thermal): Yes For the Purpose of:: To decrease pain, To decrease swelling/inflammation and To increase ROM Text: Thank you for the opportunity to evaluate your patient. For Medicare and Medicare HMO plans, please review the plan of care and approve it. It will need to be FAXED BACK to us at [phone] for Medicare purposes. For Medicare only, by signing this I certify the plan of care. Please let me know if there are questions or concerns regarding this plan of care. Physician Signature: Date:
--- NOTE | 2024-06-03 12:27 | HP.PTDCSUM ---
Discharge Summary D/C summary: It has been my pleasure to treat SHIRA MEZA referred by TAN Bowers, with the diagnosis of Lumbar scoliosis for a total of 5 visit(s). Discharge Date: 06/03/24 Please see the following information for a summary of their discharge status. Subjective Subjective: Pt. reports I was pretty good yesterday, but today I am having some soreness. Pt. reports overall improved, but still has some bouts of symptoms. Pt. denies N/T in either LE. Pt. reports being HEP compliant. She is leaving next week for [place] for the winter. Pain Lumbar spine: Pain Intensity (Out of 10): 1 Overall Improvement % Improvement: 75 Objective Objective/Function: Pt. is going to [place] next week for the winter. She had + response with extension and core stability exercises. She doing all of her exercises and progressing with extension. pt. will be DC due to leaving for winter today. Pt. is sleeping well, but does have increased pain in the AMs. Pt. has close to full ROM, except min/mod limitation with extension. I talked to her about continuing her exercises, but if still having issues when she is in [place] she should look at resuming PT while she is down there. Pt. consents. Goals Goal 1:: Pt. to be I with HEP. Goal Progress: Goal Met Goal 2:: STG: Pt. to sleep throughout the night without increase in symptoms. Goal Progress: Goal Met Goal 3:: LTG: Pt. to have 0/10 pain in lumbar spine with all ADls. Goal Progress: Progressing Goal 4:: LTG: Pt. to have full lumbar ROM without increase in symptoms. Goal Progress: Progressing Goal 5:: LTG: Pt. to have increased core strength to fair in order to reduce stress applied to lumbar spine. Plan Plan: Pt. DC from PT D/C Information Discharge Comments: Pt. had a + response with extension exercises and core stability. She is to continue with her exercises while in [place]. It not progressing I suggested she follow up with PT while down there. d/c sentence: If there are questions or concerns regarding this patient's physical therapy, please feel free to call me at [phone]. Thank you for the referral of this patient. Sincerely, Milo Wadsworth Sipos, DPT Balance/Gait/Functional tests Balance/Special Test Scores Oswestry Low Back Score: 14 Improvement % Improvement: 75
== END 2024-06-03 19:00 | disposition home or self-care (01) ==
LOC: PT 11:00
PROVIDERS: PCP Internal Medicine; Referring Provider Student in an Organized Health Care Education/Training Program; Visit Provider Student in an Organized Health Care Education/Training Program
DX: M41.86 Other forms of scoliosis, lumbar region (principal)
CPT/HCPCS: 97035; 97110; 97161